=== PATIENT | female | born 1955 | race Caucasian/White ===

== ENCOUNTER 2018-09-28 09:45 | Outpatient (RCR) | payer MEDICARE, OTHER, SELFPAY ==
--- NOTE | 2018-08-22 17:00 | PT.OIE ---
Current Diagnoses Pain in unspecified ankle and joints of unspecified foot (08/22/18) Other intervertebral disc degeneration, lumbar region (08/22/18) Provider Visit Care Team Role Provider Type Angel Aranda DO Family Provider Non-Staff Specialty: Medical Address: [address] [place] [address], [address] Email: Christelle Palafox MD Attending Provider Non-Staff Primary Care Provider Specialty: Internal Medicine Address: [address] [place] [address], [id number] Email: [email or web address] Initial Evaluation PT-OP-A Visit Information Start: 08/22/18 16:59 Freq: Status: Active Protocol: Document 08/22/18 17:11 EA (Rec: 08/22/18 17:39 EA [id number]) Out-Patient Physical Therapy Visit Information Visit Information Visit Type Initial Evaluation Visit Start Time 15:15 Visit Stop Time 16:00 Total Visit Minutes 45 Visit Number 1 Number of NEWSCAST PRODUCER Visits 0 Evaluation Information Evaluation Date 08/22/18 Precautions Precautions Tape allergy, easy to bruise, Raynauds (blisters history when exposed to cold) Occasional vertigo PT-OP-B Current Condition Start: 08/22/18 16:59 Freq: Status: Active Protocol: Document 08/22/18 17:11 EA (Rec: 08/22/18 17:39 EA [id number]) Current Condition History of Current Condition Onset Date > 10 years chronic condition Current Complaints Both ankle and low back localized pain. History of Current Condition Pt reports present low back pain complaint has been chronic since 2007 and has had formal PT yearly with no complete recovery. She states currently on special treatment for th nerve at the sacral region which they believe both heels sharp and burning pain is due to nerve issue. Patient reports she been using foot orthotics in more than 2 years as it was prescribed by her podiatrists. She feels it helps to decrease pressure. 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 Currently on long standing steroid medication Treatment Goals Patient/Caregiver Goals Patient would like to reduce low back pain from 8/10 to at least 3/10 Would like to eliminate both heel burning sensation. 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 Unable Current Functional Impairments (Reported) Functional Limitations- ADL's Indep with limitation in all activities that requires bending, lifting, and long distance ambulation Functional Limitations- Mobility/Gait 300 ft Functional Limitations- Recreation/ Unable to perform recreation Hobbies activities that requires dynamic standing PT-OP-C Subjective Start: 08/22/18 16:59 Freq: Status: Active Protocol: Document 08/22/18 17:11 EA (Rec: 08/22/18 17:39 EA [id number]) OP-PT Subjective Patient Comments Patient Comments Pt reports she is very happy to be able to walk more than a block to get her mail. Patient Reported Progress Worse Patient Questionnaires Foot & Ankle Ability Measure- ADL and Sports FAAM-ADL Score 27 FAAM-ADL Impairment 60 to 79% Impaired (Score 16- 32) OP-PT Pain Assessment Pain Assessment Grid Paper Pain Assessment Grid Completed Yes Location Bilateral Lower Volar Foot Pain Location Details platar surface, heels Intensity 5 Scale Used Numeric (1 - 10) Description Burning Sharp Frequency Frequent Other Pain Aggravating Factors weight bearing Right Lower Back Intensity 7 Scale Used Numeric (1 - 10) Description Tender Tightness Frequency Intermittent Pain Aggravating Factors Activity Standing Walking Bending Lifting Home Pain Medication Use Pain Medications Used Yes Pain Behaviors Pain Behaviors Wincing PT-OP-D Balance Start: 08/22/18 16:59 Freq: Status: Active Protocol: Document 08/22/18 17:20 EA (Rec: 08/23/18 16:22 EA [id number]) Balance Tests Single Limb Standing Single Limb- Right unable Single Limb- Left < 3 seconds PT-OP-G Mobility & Gait Start: 08/22/18 16:59 Freq: Status: Active Protocol: Document 08/22/18 17:11 EA (Rec: 08/22/18 17:39 EA [id number]) OP Gait Assessment Gait Gait Assistance Required: Independent Able to Maintain Weight Bearing Status Yes During Gait Assistive Devices Assistive Device Straight Cane Gait Deviations General Gait Pattern Antalgic Factors Limiting Gait Function Factors Limiting Gait Function Decreased Activity Tolerance Decreased Strength Pain PT-OP-J Posture/Palpation/Skin Start: 08/22/18 16:59 Freq: Status: Active Protocol: Document 08/22/18 17:20 EA (Rec: 08/23/18 16:20 EA [id number]) Posture Evaluation Comments Posture Comments Left shoulder depressed with left hip slightly elevated. Increased lumbar lordosis Palpation Assessment Location One Palpation Location Paralumbars, SI joint, right hip ER, Bilat ITB Palpation Findings Soft Tissue Tightness Tenderness Trigger Point PT-OP-K Range of Motion Start: 08/22/18 16:59 Freq: Status: Active Protocol: Document 08/22/18 17:20 EA (Rec: 08/23/18 16:20 EA [id number]) Lumbar Spine Range of Motion Lumbar Spine Percentage Testing Position Standing Flexion 60 Extension 100 Rotation Left 75 Rotation Right 75 Lateral Flexion Left 75 Lateral Flexion Right 65 ROM Limitations Soft Tissue Tightness Pain Ankle and Foot Goniometric Range of Motion Ankle and Foot Measured in Degrees Right Active Ankle/Foot ROM WFL Yes Left Active Ankle/Foot ROM WFL Yes PT-OP-L Special Tests Start: 08/22/18 16:59 Freq: Status: Active Protocol: Document 08/22/18 17:20 EA (Rec: 08/23/18 16:20 EA [id number]) Special Tests Lumbar Spine Special Tests Slump Test Results - Prone Instability Test Test Results - Straight Leg Raise Test Results - Hip Special Tests Piriformis Test Results Right sensitive Knee Special Tests Neel's Test Test Results + bilateral PT-OP-M Strength Start: 08/22/18 16:59 Freq: Status: Active Protocol: Document 08/22/18 17:20 EA (Rec: 08/23/18 16:20 EA [id number]) Hip Strength Hip Manual Muscle Testing Right Flexion (L2) 4 Good Extension (S1) 4 Good Abduction 4 Good External Rotation 4 Good Internal Rotation 4- Good- Left Flexion (L2) 4 Good Extension (S1) 4 Good Abduction 4 Good External Rotation 4 Good Internal Rotation 4- Good- Reason Not Measured WFL Knee Strength Knee Manual Muscle Testing Right Reason Not Measured WFL Left Reason Not Measured WFL Ankle/Foot Strength Ankle and Foot Manual Muscle Testing Right Dorsiflexion (L4) 4+ Good+ Plantarflexion (S1) 5 Normal Left Dorsiflexion (L4) 4+ Good+ Plantarflexion (S1) 5 Normal PT-OP-T Assessment and Plan Start: 08/22/18 16:59 Freq: Status: Active Protocol: Document 08/22/18 17:20 EA (Rec: 08/23/18 16:20 EA [id number]) Physical Therapy Assessment Rehab Potential Rehabilitation Potential Fair Evaluation Complexity Number of Personal Factors/Comorbidities 3 or More Number of Body Systems Impaired 4 or More Clinical Presentation at Evaluation Unstable Impairments Impairments Activity Tolerance Balance Functional Mobility Gait Pain Posture ROM Soft Tissue Mobility Strength Goals Three Impairment Balance Penitentiary Goal (LTG) Patient will perform SLS to each leg more than 5 seconds to improve gait LTG Duration 4 wks Two Impairment FAAM score of 27/80 Forensic Manager Goal (LTG) Patient will have FAAM score of > 40/80 LTG Duration 6 wks One Impairment Impaired distance amb. Penitentiary Goal (LTG) Patient will amb. more than 2 blocks te get her mail without increase of low back and leg symptoms LTG Duration 6 wks Assessment Summary Assessment Pleasant 63 y/o F patient with a referring diagnosis of DDD to lumbar region and B ankle pain. Today patient presented with impaired gait, balance, decreased standing and walking tolerance due to moderate to severe pain to lumbar region and both heel/foot pain. Lumbar spine ROM reveals limited with flexion> SF and rotation. Palpation reveals tender over SI joint, bilateral ITB, and right hip gluteal region. Special tests reveals positive with ITB tightness, slight sensitive with piriformis syndrome, slight sensitive with SI joint, negative with Windlass effect to both plantar fascia and negative with SLR. Strength assessment reveals no significant weakness with ability of the patient to walk on both toes, however slight weakness to both hip ABD/ER/IR . Postural assessment reveals left shoulder depressed with left hip elev. Due to above mentioned issues, patient unable to function to her maximum potential as should be . Patient would benefit with skilled PT to enhance function . Physical Therapy Plan Frequency and Duration Frequency of Treatment 2x/Week Duration of Treatment 8wks Plan of Care Start Date 08/22/18 Plan of Care End Date 10/17/18 Therapeutic Interventions Therapeutic Interventions Balance Training Gait Training Home Exercise Program Joint Mobilizations Manual Therapy Neuromuscular Re-education Patient/Caregiver Education Self-Care/Home Management Soft Tissue Mobilization Taping Therapeutic Exercises Modalities Hot Packs Paraffin Bath Ultrasound Next Visit Focus/Plan Next Note Type Treatment Note Next Visit Plan Begin lumbar ROM, Flexibility to hip, lumbar region (hip ER, ITB), IFC to right lat HIP and use of heat.
--- NOTE | 2018-08-22 17:20 | PT.OPPOC ---
Current Diagnoses Pain in unspecified ankle and joints of unspecified foot (08/22/18) Other intervertebral disc degeneration, lumbar region (08/22/18) Provider Visit Care Team Role Provider Type Angel Aranda DO Family Provider Non-Staff Specialty: Medical Address: [address] [place] [address], [phone] Email: Christelle Palafox MD Attending Provider Non-Staff Primary Care Provider Specialty: Internal Medicine Address: [address] [place] [address], [phone] Email: [email or web address] Plan Of Care PT-OP-T Assessment and Plan Start: 08/22/18 16:59 Freq: Status: Active Protocol: Document 08/22/18 17:20 EA (Rec: 08/23/18 16:20 EA [id number]) Physical Therapy Assessment Rehab Potential Rehabilitation Potential Fair Evaluation Complexity Number of Personal Factors/Comorbidities 3 or More Number of Body Systems Impaired 4 or More Clinical Presentation at Evaluation Unstable Impairments Impairments Activity Tolerance Balance Functional Mobility Gait Pain Posture ROM Soft Tissue Mobility Strength Goals Three Impairment Balance Long-Term Goal (LTG) Patient will perform SLS to each leg more than 5 seconds to improve gait LTG Duration 4 wks Two Impairment FAAM score of 27/80 Long-Term Goal (LTG) Patient will have FAAM score of > 40/80 LTG Duration 6 wks One Impairment Impaired distance amb. Veneer Redrier Goal (LTG) Patient will amb. more than 2 blocks te get her mail without increase of low back and leg symptoms LTG Duration 6 wks Assessment Summary Assessment Pleasant 63 y/o F patient with a referring diagnosis of DDD to lumbar region and B ankle pain. Today patient presented with impaired gait, balance, decreased standing and walking tolerance due to moderate to severe pain to lumbar region and both heel/foot pain. Lumbar spine ROM reveals limited with flexion> SF and rotation. Palpation reveals tender over SI joint, bilateral ITB, and right hip gluteal region. Special tests reveals positive with ITB tightness, slight sensitive with piriformis syndrome, slight sensitive with SI joint, negative with Windlass effect to both plantar fascia and negative with SLR. Strength assessment reveals no significant weakness with ability of the patient to walk on both toes, however slight weakness to both hip ABD/ER/IR . Postural assessment reveals left shoulder depressed with left hip elev. Due to above mentioned issues, patient unable to function to her maximum potential as should be . Patient would benefit with skilled PT to enhance function . Physical Therapy Plan Frequency and Duration Frequency of Treatment 2x/Week Duration of Treatment 8wks Plan of Care Start Date 08/22/18 Plan of Care End Date 10/17/18 Therapeutic Interventions Therapeutic Interventions Balance Training Gait Training Home Exercise Program Joint Mobilizations Manual Therapy Neuromuscular Re-education Patient/Caregiver Education Self-Care/Home Management Soft Tissue Mobilization Taping Therapeutic Exercises Modalities Hot Packs Paraffin Bath Ultrasound Next Visit Focus/Plan Next Note Type Treatment Note Next Visit Plan Begin lumbar ROM, Flexibility to hip, lumbar region (hip ER, ITB), IFC to right lat HIP and use of heat. Plan of Care Dates Plan of Care Start Date 08/22/18 Plan of Care End Date 10/17/18 Please Sign and Return: I have reviewed this Plan of Care and certify that the skilled therapy services above are required to meet the patient?s needs. Physician Signature Date Printed Name and Credentials Clinical Instructor Signature Printed Name and Credentials
--- NOTE | 2018-08-24 12:01 | PT.OTN ---
Current Diagnoses Pain in unspecified ankle and joints of unspecified foot (08/24/18) Other intervertebral disc degeneration, lumbar region (08/24/18) Physical Therapy Treatment Note PT-OP-A Visit Information Start: 08/22/18 16:59 Freq: Status: Active Protocol: Document 08/24/18 11:50 SA (Rec: 08/24/18 12:01 SA [email or web address]) Out-Patient Physical Therapy Visit Information Visit Information Visit Type Treatment Note Visit Start Time 10:00 Visit Stop Time 10:30 Total Visit Minutes 30 Visit Number 2 Number of SLEEP SCIENTIST Visits 1 PT-OP-B Current Condition Start: 08/22/18 16:59 Freq: Status: Active Protocol: Document 08/22/18 17:11 EA (Rec: 08/22/18 17:39 EA [id number]) Current Condition History of Current Condition Onset Date > 10 years chronic condition Current Complaints Both ankle and low back localized pain. History of Current Condition Pt reports present low back pain complaint has been chonic since 2007 and has had formal PT yearly with no complete recovery. She states currently on special treament for th nerve at the sacral region which they believe both heels sharp and burning pain is due to nerve issue. Patient reports she been using foot orthotics in more than 2 years as it was precribed by her podiatrists. She feels it helps to decrease pressure. Prior Treatments and Tests Multiple treaments with PT since 2007 Block Placer treament for both feet Future Testing and Treatments Planned Currently on HRT therapy Currently on special lumbasacral nerve therapy. Currently on long standing steroid medication Treatment Goals Patient/Caregiver Goals Patient would like to reduce low back pain from 8/10 to at least 3/10 Would like to eliminate both heel burning sensation. 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 Unable Current Functional Impairments (Reported) Functional Limitations- ADL's Indep with limitation in all activities that requires bending, lifting, and long distance ambulation Functional Limitations- Mobility/Gait 300 ft Functional Limitations- Recreation/ Unable to perform recreation Hobbies activities that requires dynamic standing PT-OP-C Subjective Start: 08/22/18 16:59 Freq: Status: Active Protocol: Document 08/24/18 11:50 SA (Rec: 08/24/18 12:01 SA [id number]) OP-PT Subjective Patient Comments Patient Comments Pt reports feeling fired up with Low back and R ITB symptoms, thinks her medical appointments from earlier in the week aggrivated her Su. PT-OP-D Balance Start: 08/22/18 16:59 Freq: Status: Active Protocol: Document 08/22/18 17:20 EA (Rec: 08/23/18 16:22 EA [id number]) Balance Tests Single Limb Standing Single Limb- Right unable Single Limb- Left < 3 seconds PT-OP-G Mobility & Gait Start: 08/22/18 16:59 Freq: Status: Active Protocol: Document 08/22/18 17:11 EA (Rec: 08/22/18 17:39 EA [id number]) OP Gait Assessment Gait Gait Assistance Required: Independent Able to Maintain Weight Bearing Status Yes During Gait Assistive Devices Assistive Device Straight Cane Gait Deviations General Gait Pattern Antalgic Factors Limiting Gait Function Factors Limiting Gait Function Decreased Activity Tolerance Decreased Strength Pain PT-OP-J Posture/Palpation/Skin Start: 08/22/18 16:59 Freq: Status: Active Protocol: Document 08/22/18 17:20 EA (Rec: 08/23/18 16:20 EA [id number]) Posture Evaluation Comments Posture Comments Left shoulder depressed with left hip slightly elevated. Increased lumbar lordosis Palpation Assessment Location One Palpation Location Paralumbars, SI joint, right hip ER, Bilat ITB Palpation Findings Soft Tissue Tightness Tenderness Trigger Point PT-OP-K Range of Motion Start: 08/22/18 16:59 Freq: Status: Active Protocol: Document 08/22/18 17:20 EA (Rec: 08/23/18 16:20 EA [id number]) Lumbar Spine Range of Motion Lumbar Spine Percentage Testing Position Standing Flexion 60 Extension 100 Rotation Left 75 Rotation Right 75 Lateral Flexion Left 75 Lateral Flexion Right 65 ROM Limitations Soft Tissue Tightness Pain Ankle and Foot Goniometric Range of Motion Ankle and Foot Measured in Degrees Right Active Ankle/Foot ROM WFL Yes Left Active Ankle/Foot ROM WFL Yes PT-OP-L Special Tests Start: 08/22/18 16:59 Freq: Status: Active Protocol: Document 08/22/18 17:20 EA (Rec: 08/23/18 16:20 EA [id number]) Special Tests Lumbar Spine Special Tests Slump Test Results - Prone Instability Test Test Results - Straight Leg Raise Test Results - Hip Special Tests Piriformis Test Results Right sensitive Knee Special Tests Neel's Test Test Results + bilateral PT-OP-M Strength Start: 08/22/18 16:59 Freq: Status: Active Protocol: Document 08/22/18 17:20 EA (Rec: 08/23/18 16:20 EA [id number]) Hip Strength Hip Manual Muscle Testing Right Flexion (L2) 4 Good Extension (S1) 4 Good Abduction 4 Good External Rotation 4 Good Internal Rotation 4- Good- Left Flexion (L2) 4 Good Extension (S1) 4 Good Abduction 4 Good External Rotation 4 Good Internal Rotation 4- Good- Reason Not Measured WFL Knee Strength Knee Manual Muscle Testing Right Reason Not Measured WFL Left Reason Not Measured WFL Ankle/Foot Strength Ankle and Foot Manual Muscle Testing Right Dorsiflexion (L4) 4+ Good+ Plantarflexion (S1) 5 Normal Left Dorsiflexion (L4) 4+ Good+ Plantarflexion (S1) 5 Normal PT-OP-Q Treatments Start: 08/22/18 16:59 Freq: Status: Active Protocol: Document 08/24/18 11:50 SA (Rec: 08/24/18 12:01 SA [id number]) Therapeutic Exercises Supine Exercises PPT with TA activiation Reps/Minutes 10x 5 Comments Cues for technique. DKTC Side bilateral Reps/Minutes 10 x 8 ITB stretch Side right Reps/Minutes 30 x 2 HS stretch Side bilateral Reps/Minutes 30 x 2 Comments supine Manual Therapy Treatment Soft Tissue Mobilization Lumbar paraspinals Body Location Lumbar paraspinals Mobilization Type Myofascial Release Rolling Intensity/Depth Superficial Body Position Sidelying Comments Pt very tender on R lumbar paraspinals, poor tolerance to STM so d/arin R ITB STM Body Location R ITB Mobilization Type Oscillations Rolling Intensity/Depth Superficial Body Position Sidelying Comments Pt very point tender, application of Bio-freeze prior and tolerated better. PT-OP-T Assessment and Plan Start: 08/22/18 16:59 Freq: Status: Active Protocol: Document 08/24/18 11:50 SA (Rec: 08/24/18 12:01 SA [id number]) Physical Therapy Assessment Assessment Summary Assessment Initiated stretching and core exercise, pt with limited tolerance to exercise and STM d/t Su flare up. Responded well to Bio-freeze. Physical Therapy Plan Next Visit Focus/Plan Next Note Type Treatment Note Next Visit Plan Begin lumbar ROM, Flexibility to hip, lumbar region (hip ER, ITB), IFC to right lat HIP and use of heat.
--- NOTE | 2018-08-29 17:09 | PT.OTN ---
Current Diagnoses Pain in unspecified ankle and joints of unspecified foot (08/29/18) Other intervertebral disc degeneration, lumbar region (08/29/18) Physical Therapy Treatment Note PT-OP-A Visit Information Start: 08/22/18 16:59 Freq: Status: Active Protocol: Document 08/29/18 16:57 EA (Rec: 08/29/18 17:09 EA [id number]) Out-Patient Physical Therapy Visit Information Visit Information Visit Type Treatment Note Visit Start Time 09:45 Visit Stop Time 10:30 Total Visit Minutes 40 Visit Number 3 Number of [employer] SUPERINTENDENT Visits 1 PT-OP-B Current Condition Start: 08/22/18 16:59 Freq: Status: Active Protocol: Document 08/22/18 17:11 EA (Rec: 08/22/18 17:39 EA [id number]) Current Condition History of Current Condition Onset Date > 10 years chronic condition Current Complaints Both ankle and low back localized pain. History of Current Condition Pt reports present low back pain complaint has been chonic since 2007 and has had formal PT yearly with no complete recovery. She states currently on special treament for th nerve at the sacral region which they believe both heels sharp and burning pain is due to nerve issue. Patient reports she been using foot orthotics in more than 2 years as it was precribed by her podiatrists. She feels it helps to decrease pressure. 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 Currently on long standing steroid medication Treatment Goals Patient/Caregiver Goals Patient would like to reduce low back pain from 8/10 to at least 3/10 Would like to eliminate both heel burning sensation. 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 Unable Current Functional Impairments (Reported) Functional Limitations- ADL's Indep with limitation in all activities that requires bending, lifting, and long distance ambulation Functional Limitations- Mobility/Gait 300 ft Functional Limitations- Recreation/ Unable to perform recreation Hobbies activities that requires dynamic standing PT-OP-C Subjective Start: 08/22/18 16:59 Freq: Status: Active Protocol: Document 08/29/18 16:57 EA (Rec: 08/29/18 17:09 EA [id number]) OP-PT Subjective Patient Comments Patient Comments Pt reports last treament with biofreeze helps to ease down manual therapy. PT-OP-D Balance Start: 08/22/18 16:59 Freq: Status: Active Protocol: Document 08/22/18 17:20 EA (Rec: 08/23/18 16:22 EA [id number]) Balance Tests Single Limb Standing Single Limb- Right unable Single Limb- Left < 3 seconds PT-OP-G Mobility & Gait Start: 08/22/18 16:59 Freq: Status: Active Protocol: Document 08/22/18 17:11 EA (Rec: 08/22/18 17:39 EA [id number]) OP Gait Assessment Gait Gait Assistance Required: Independent Able to Maintain Weight Bearing Status Yes During Gait Assistive Devices Assistive Device Straight Cane Gait Deviations General Gait Pattern Antalgic Factors Limiting Gait Function Factors Limiting Gait Function Decreased Activity Tolerance Decreased Strength Pain PT-OP-J Posture/Palpation/Skin Start: 08/22/18 16:59 Freq: Status: Active Protocol: Document 08/22/18 17:20 EA (Rec: 08/23/18 16:20 EA [id number]) Posture Evaluation Comments Posture Comments Left shoulder depressed with left hip slightly elevated. Increased lumbar lordosis Palpation Assessment Location One Palpation Location Paralumbars, SI joint, right hip ER, Bilat ITB Palpation Findings Soft Tissue Tightness Tenderness Trigger Point PT-OP-K Range of Motion Start: 08/22/18 16:59 Freq: Status: Active Protocol: Document 08/22/18 17:20 EA (Rec: 08/23/18 16:20 EA [id number]) Lumbar Spine Range of Motion Lumbar Spine Percentage Testing Position Standing Flexion 60 Extension 100 Rotation Left 75 Rotation Right 75 Lateral Flexion Left 75 Lateral Flexion Right 65 ROM Limitations Soft Tissue Tightness Pain Ankle and Foot Goniometric Range of Motion Ankle and Foot Measured in Degrees Right Active Ankle/Foot ROM WFL Yes Left Active Ankle/Foot ROM WFL Yes PT-OP-L Special Tests Start: 08/22/18 16:59 Freq: Status: Active Protocol: Document 08/22/18 17:20 EA (Rec: 08/23/18 16:20 EA [id number]) Special Tests Lumbar Spine Special Tests Slump Test Results - Prone Instability Test Test Results - Straight Leg Raise Test Results - Hip Special Tests Piriformis Test Results Right sensitive Knee Special Tests Neel's Test Test Results + bilateral PT-OP-M Strength Start: 08/22/18 16:59 Freq: Status: Active Protocol: Document 08/22/18 17:20 EA (Rec: 08/23/18 16:20 EA [id number]) Hip Strength Hip Manual Muscle Testing Right Flexion (L2) 4 Good Extension (S1) 4 Good Abduction 4 Good External Rotation 4 Good Internal Rotation 4- Good- Left Flexion (L2) 4 Good Extension (S1) 4 Good Abduction 4 Good External Rotation 4 Good Internal Rotation 4- Good- Reason Not Measured WFL Knee Strength Knee Manual Muscle Testing Right Reason Not Measured WFL Left Reason Not Measured WFL Ankle/Foot Strength Ankle and Foot Manual Muscle Testing Right Dorsiflexion (L4) 4+ Good+ Plantarflexion (S1) 5 Normal Left Dorsiflexion (L4) 4+ Good+ Plantarflexion (S1) 5 Normal PT-OP-Q Treatments Start: 08/22/18 16:59 Freq: Status: Active Protocol: Document 08/29/18 16:57 EA (Rec: 08/29/18 17:09 EA [id number]) Cardio Equipment Recumbent Stepper (Sci-Fit) Duration (Minutes) 3 Seat Position 9 Other unable to finish 5 mins due to increased of low back pain Therapeutic Exercises Supine Exercises PPT with TA activiation Reps/Minutes 10x 5 Comments Cues for technique. DKTC Side bilateral Reps/Minutes 10 x 8 ITB stretch Side right Reps/Minutes 30 x 2 HS stretch Side bilateral Reps/Minutes 30 x 2 Comments supine Sidelying Exercises 3 Sidelying Exercise Name Hip ABD Reps/Minutes x 5 reps x 2 sets 1 Sidelying Exercise Name clamshell Side right Reps/Minutes x 10 reps Manual Therapy Treatment Soft Tissue Mobilization Lumbar paraspinals Body Location Lumbar paraspinals Mobilization Type Myofascial Release Intensity/Depth Superficial Body Position Sidelying R ITB STM Body Location R ITB Mobilization Type Myofascial Release Intensity/Depth Superficial Body Position Sidelying Comments Pt very point tender, application of Bio-freeze prior and tolerated better. Self-Care/Home Management Treatment Education Caregiver Education Discussed lumbar abnormal posture in relevance to current both feet burning sensation. PT-OP-T Assessment and Plan Start: 08/22/18 16:59 Freq: Status: Active Protocol: Document 08/29/18 16:57 EA (Rec: 08/29/18 17:09 EA [id number]) Physical Therapy Assessment Assessment Summary Assessment Pt tolerated manual PT with the application of biofreeze prior. Other therex poorly tolerated due to increased of low back pain. Physical Therapy Plan Next Visit Focus/Plan Next Note Type Treatment Note Next Visit Plan Begin lumbar ROM, Flexibility to hip, lumbar region (hip ER, ITB), IFC to right lat HIP.
--- NOTE | 2018-09-05 13:10 | PT.OTN ---
Current Diagnoses Pain in unspecified ankle and joints of unspecified foot (09/05/18) Other intervertebral disc degeneration, lumbar region (09/05/18) Physical Therapy Treatment Note PT-OP-A Visit Information Start: 08/22/18 16:59 Freq: Status: Active Protocol: Document 09/05/18 13:02 EA (Rec: 09/05/18 13:06 EA [id number]) Out-Patient Physical Therapy Visit Information Visit Information Visit Type Treatment Note Visit Start Time 09:45 Visit Stop Time 10:30 Total Visit Minutes 40 Visit Number 4 Number of PARKING [employer]ICER Visits 1 PT-OP-B Current Condition Start: 08/22/18 16:59 Freq: Status: Active Protocol: Document 08/22/18 17:11 EA (Rec: 08/22/18 17:39 EA [id number]) Current Condition History of Current Condition Onset Date > 10 years chronic condition Current Complaints Both ankle and low back localized pain. History of Current Condition Pt reports present low back pain complaint has been chonic since 2007 and has had formal PT yearly with no complete recovery. She states currently on special treament for th nerve at the sacral region which they believe both heels sharp and burning pain is due to nerve issue. Patient reports she been using foot orthotics in more than 2 years as it was precribed by her podiatrists. She feels it helps to decrease pressure. Prior Treatments and Tests Multiple treaments with PT since 2007 [employer] treament for both feet Future Testing and Treatments Planned Currently on HRT therapy Currently on special lumbasacral nerve therapy. Currently on long standing steroid medication Treatment Goals Patient/Caregiver Goals Patient would like to reduce low back pain from 8/10 to at least 3/10 Would like to eliminate both heel burning sensation. 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 Unable Current Functional Impairments (Reported) Functional Limitations- ADL's Indep with limitation in all activities that requires bending, lifting, and long distance ambulation Functional Limitations- Mobility/Gait 300 ft Functional Limitations- Recreation/ Unable to perform recreation Hobbies activities that requires dynamic standing PT-OP-C Subjective Start: 08/22/18 16:59 Freq: Status: Active Protocol: Document 09/05/18 13:02 EA (Rec: 09/05/18 13:06 EA [id number]) OP-PT Subjective Patient Comments Patient Comments Pt reports brought imaging results on her low back; states the she wants learn more about it. Pt mentioned no morning stiffness on both feet . PT-OP-D Balance Start: 08/22/18 16:59 Freq: Status: Active Protocol: Document 08/22/18 17:20 EA (Rec: 08/23/18 16:22 EA [id number]) Balance Tests Single Limb Standing Single Limb- Right unable Single Limb- Left < 3 seconds PT-OP-G Mobility & Gait Start: 08/22/18 16:59 Freq: Status: Active Protocol: Document 08/22/18 17:11 EA (Rec: 08/22/18 17:39 EA [id number]) OP Gait Assessment Gait Gait Assistance Required: Independent Able to Maintain Weight Bearing Status Yes During Gait Assistive Devices Assistive Device Straight Cane Gait Deviations General Gait Pattern Antalgic Factors Limiting Gait Function Factors Limiting Gait Function Decreased Activity Tolerance Decreased Strength Pain PT-OP-J Posture/Palpation/Skin Start: 08/22/18 16:59 Freq: Status: Active Protocol: Document 08/22/18 17:20 EA (Rec: 08/23/18 16:20 EA [id number]) Posture Evaluation Comments Posture Comments Left shoulder depressed with left hip slightly elevated. Increased lumbar lordosis Palpation Assessment Location One Palpation Location Paralumbars, SI joint, right hip ER, Bilat ITB Palpation Findings Soft Tissue Tightness Tenderness Trigger Point PT-OP-K Range of Motion Start: 08/22/18 16:59 Freq: Status: Active Protocol: Document 08/22/18 17:20 EA (Rec: 08/23/18 16:20 EA [id number]) Lumbar Spine Range of Motion Lumbar Spine Percentage Testing Position Standing Flexion 60 Extension 100 Rotation Left 75 Rotation Right 75 Lateral Flexion Left 75 Lateral Flexion Right 65 ROM Limitations Soft Tissue Tightness Pain Ankle and Foot Goniometric Range of Motion Ankle and Foot Measured in Degrees Right Active Ankle/Foot ROM WFL Yes Left Active Ankle/Foot ROM WFL Yes PT-OP-L Special Tests Start: 08/22/18 16:59 Freq: Status: Active Protocol: Document 08/22/18 17:20 EA (Rec: 08/23/18 16:20 EA [id number]) Special Tests Lumbar Spine Special Tests Slump Test Results - Prone Instability Test Test Results - Straight Leg Raise Test Results - Hip Special Tests Piriformis Test Results Right sensitive Knee Special Tests Neel's Test Test Results + bilateral PT-OP-M Strength Start: 08/22/18 16:59 Freq: Status: Active Protocol: Document 08/22/18 17:20 EA (Rec: 08/23/18 16:20 EA [id number]) Hip Strength Hip Manual Muscle Testing Right Flexion (L2) 4 Good Extension (S1) 4 Good Abduction 4 Good External Rotation 4 Good Internal Rotation 4- Good- Left Flexion (L2) 4 Good Extension (S1) 4 Good Abduction 4 Good External Rotation 4 Good Internal Rotation 4- Good- Reason Not Measured WFL Knee Strength Knee Manual Muscle Testing Right Reason Not Measured WFL Left Reason Not Measured WFL Ankle/Foot Strength Ankle and Foot Manual Muscle Testing Right Dorsiflexion (L4) 4+ Good+ Plantarflexion (S1) 5 Normal Left Dorsiflexion (L4) 4+ Good+ Plantarflexion (S1) 5 Normal PT-OP-Q Treatments Start: 08/22/18 16:59 Freq: Status: Active Protocol: Document 09/05/18 13:02 EA (Rec: 09/05/18 13:06 EA [id number]) Cardio Equipment Recumbent Stepper (Sci-Fit) Duration (Minutes) 7 Seat Position 9 Therapeutic Exercises Supine Exercises PPT with TA activiation Reps/Minutes 10x 5 Comments Cues for technique. DKTC Side bilateral Reps/Minutes 10 x 8 ITB stretch Side right Reps/Minutes 30 x 2 HS stretch Side bilateral Reps/Minutes 30 x 2 Comments supine Sidelying Exercises 3 Sidelying Exercise Name Hip ABD Reps/Minutes x 5 reps x 2 sets 1 Sidelying Exercise Name clamshell Side right Reps/Minutes x 10 reps Manual Therapy Treatment Soft Tissue Mobilization R ITB STM Body Location B ITB, hip e-rotators Mobilization Type Myofascial Release Intensity/Depth Superficial Body Position Sidelying Comments Pt very point tender, application of Bio-freeze prior and tolerated better. PT-OP-T Assessment and Plan Start: 08/22/18 16:59 Freq: Status: Active Protocol: Document 09/05/18 13:02 EA (Rec: 09/05/18 13:06 ERUM [id number]) Physical Therapy Assessment Assessment Summary Assessment Pt educated with back condition. She tolerated treatment with less discomfort this time. Cont with current plan. Physical Therapy Plan Next Visit Focus/Plan Next Note Type Treatment Note Next Visit Plan Begin as tolerated sitted/standing lumbar ROM, flexibility to hip, lumbar region (hip ER, ITB).
--- NOTE | 2018-09-07 11:31 | PT.OTN ---
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 History of Current Condition Pt reports present low back pain complaint has been chonic since 2007 and has had formal PT yearly with no complete recovery. She states currently on special treament for th nerve at the sacral region which they believe both heels sharp and burning pain is due to nerve issue. Patient reports she been using foot orthotics in more than 2 years as it was precribed by her podiatrists. She feels it helps to decrease pressure. Prior Treatments and Tests Multiple treaments with PT since 2007 [employer] treament for both feet Future Testing and Treatments Planned Currently on HRT therapy Currently on special lumbasacral nerve therapy. Currently on long standing steroid medication Treatment Goals Patient/Caregiver Goals Patient would like to reduce low back pain from 8/10 to at least 3/10 Would like to eliminate both heel burning sensation. 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 Unable Current Functional Impairments (Reported) Functional Limitations- ADL's Indep with limitation in all activities that requires bending, lifting, and long distance ambulation Functional Limitations- Mobility/Gait 300 ft Functional Limitations- Recreation/ Unable to perform recreation Hobbies activities that requires dynamic standing PT-OP-C Subjective Start: 08/22/18 16:59 Freq: Status: Active Protocol: Document 09/07/18 11:21 SA (Rec: 09/07/18 11:31 SA [id number]) OP-PT Subjective Patient Comments Patient Comments Pt reports feeling pretty good today, was sore last night but soaked in hot tub this AM and low back feeling pretty good now. PT-OP-D Balance Start: 08/22/18 16:59 Freq: Status: Active Protocol: Document 08/22/18 17:20 EA (Rec: 08/23/18 16:22 EA [id number]) Balance Tests Single Limb Standing Single Limb- Right unable Single Limb- Left < 3 seconds PT-OP-G Mobility & Gait Start: 08/22/18 16:59 Freq: Status: Active Protocol: Document 08/22/18 17:11 EA (Rec: 08/22/18 17:39 EA [id number]) OP Gait Assessment Gait Gait Assistance Required: Independent Able to Maintain Weight Bearing Status Yes During Gait Assistive Devices Assistive Device Straight Cane Gait Deviations General Gait Pattern Antalgic Factors Limiting Gait Function Factors Limiting Gait Function Decreased Activity Tolerance Decreased Strength Pain PT-OP-J Posture/Palpation/Skin Start: 08/22/18 16:59 Freq: Status: Active Protocol: Document 08/22/18 17:20 EA (Rec: 08/23/18 16:20 EA [id number]) Posture Evaluation Comments Posture Comments Left shoulder depressed with left hip slightly elevated. Increased lumbar lordosis Palpation Assessment Location One Palpation Location Paralumbars, SI joint, right hip ER, Bilat ITB Palpation Findings Soft Tissue Tightness Tenderness Trigger Point PT-OP-K Range of Motion Start: 08/22/18 16:59 Freq: Status: Active Protocol: Document 08/22/18 17:20 EA (Rec: 08/23/18 16:20 EA [id number]) Lumbar Spine Range of Motion Lumbar Spine Percentage Testing Position Standing Flexion 60 Extension 100 Rotation Left 75 Rotation Right 75 Lateral Flexion Left 75 Lateral Flexion Right 65 ROM Limitations Soft Tissue Tightness Pain Ankle and Foot Goniometric Range of Motion Ankle and Foot Measured in Degrees Right Active Ankle/Foot ROM WFL Yes Left Active Ankle/Foot ROM WFL Yes PT-OP-L Special Tests Start: 08/22/18 16:59 Freq: Status: Active Protocol: Document 08/22/18 17:20 EA (Rec: 08/23/18 16:20 EA [id number]) Special Tests Lumbar Spine Special Tests Slump Test Results - Prone Instability Test Test Results - Straight Leg Raise Test Results - Hip Special Tests Piriformis Test Results Right sensitive Knee Special Tests Neel's Test Test Results + bilateral PT-OP-M Strength Start: 08/22/18 16:59 Freq: Status: Active Protocol: Document 08/22/18 17:20 EA (Rec: 08/23/18 16:20 EA [id number]) Hip Strength Hip Manual Muscle Testing Right Flexion (L2) 4 Good Extension (S1) 4 Good Abduction 4 Good External Rotation 4 Good Internal Rotation 4- Good- Left Flexion (L2) 4 Good Extension (S1) 4 Good Abduction 4 Good External Rotation 4 Good Internal Rotation 4- Good- Reason Not Measured WFL Knee Strength Knee Manual Muscle Testing Right Reason Not Measured WFL Left Reason Not Measured WFL Ankle/Foot Strength Ankle and Foot Manual Muscle Testing Right Dorsiflexion (L4) 4+ Good+ Plantarflexion (S1) 5 Normal Left Dorsiflexion (L4) 4+ Good+ Plantarflexion (S1) 5 Normal PT-OP-Q Treatments Start: 08/22/18 16:59 Freq: Status: Active Protocol: Document 09/07/18 11:21 SA (Rec: 09/07/18 11:31 SA [email or web address]) Cardio Equipment Recumbent Stepper (Sci-Fit) Duration (Minutes) 8 Resistance 1 Seat Position 9 Therapeutic Exercises Supine Exercises Trunk rotation with PT ball Side bilateral Equipment Used Red PT ball Reps/Minutes 10x each side Comments Cues for core engagement PPT with TA activiation Supine Exercise Name proressed to B marching Reps/Minutes 10x 5 Comments Cues for technique. DKTC Side bilateral Reps/Minutes 10 x 8 ITB stretch Side right Reps/Minutes 30 x 2 Sidelying Exercises 3 Sidelying Exercise Name Hip ABD Reps/Minutes x 5 reps x 2 sets 1 Sidelying Exercise Name clamshell Side right Reps/Minutes x 10 reps Manual Therapy Treatment Soft Tissue Mobilization Lumbar paraspinals Body Location Lumbar paraspinals Mobilization Type Myofascial Release Intensity/Depth Superficial Body Position Sidelying R ITB STM Body Location B ITB, hip e-rotators Mobilization Type Myofascial Release Intensity/Depth Superficial Body Position Sidelying Comments Application of Bio-freeze prior to STM PT-OP-T Assessment and Plan Start: 08/22/18 16:59 Freq: Status: Active Protocol: Document 09/07/18 11:21 SA (Rec: 09/07/18 11:31 SA [email or web address]) Physical Therapy Assessment Assessment Summary Assessment Progressed lumbar stab program with good tolerance, pt doing HEP, decreasing low back sx and B foot sx much improved. Physical Therapy Plan Next Visit Focus/Plan Next Note Type Treatment Note Next Visit Plan Progress lumbar stab and core program as tolerated.
--- NOTE | 2018-09-12 12:08 | PT.OTN ---
Current Diagnoses Pain in unspecified ankle and joints of unspecified foot (09/12/18) Other intervertebral disc degeneration, lumbar region (09/12/18) Physical Therapy Treatment Note PT-OP-A Visit Information Start: 08/22/18 16:59 Freq: Status: Active Protocol: Document 09/12/18 10:34 EA (Rec: 09/12/18 10:41 EA [id number]) Out-Patient Physical Therapy Visit Information Visit Information Visit Type Treatment Note Visit Start Time 09:45 Visit Stop Time 10:30 Total Visit Minutes 45 Visit Number 6 Number of AUDIOLOGY ASSISTANT Visits 1 PT-OP-B Current Condition Start: 08/22/18 16:59 Freq: Status: Active Protocol: Document 08/22/18 17:11 EA (Rec: 08/22/18 17:39 EA [id number]) Current Condition History of Current Condition Onset Date > 10 years chronic condition Current Complaints Both ankle and low back localized pain. History of Current Condition Pt reports present low back pain complaint has been chonic since 2007 and has had formal PT yearly with no complete recovery. She states currently on special treament for th nerve at the sacral region which they believe both heels sharp and burning pain is due to nerve issue. Patient reports she been using foot orthotics in more than 2 years as it was precribed by her podiatrists. She feels it helps to decrease pressure. Prior Treatments and Tests Multiple treaments with PT since 2007 [employer] treament for both feet Future Testing and Treatments Planned Currently on HRT therapy Currently on special lumbasacral nerve therapy. Currently on long standing steroid medication Treatment Goals Patient/Caregiver Goals Patient would like to reduce low back pain from 8/10 to at least 3/10 Would like to eliminate both heel burning sensation. 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 Unable Current Functional Impairments (Reported) Functional Limitations- ADL's Indep with limitation in all activities that requires bending, lifting, and long distance ambulation Functional Limitations- Mobility/Gait 300 ft Functional Limitations- Recreation/ Unable to perform recreation Hobbies activities that requires dynamic standing PT-OP-C Subjective Start: 08/22/18 16:59 Freq: Status: Active Protocol: Document 09/12/18 10:34 EA (Rec: 09/12/18 10:41 EA [id number]) OP-PT Subjective Patient Comments Patient Comments Pt reports she starting to get back to walking again; states low back and hips is feeling a little better. Pt also reports that she maybe possibly diagnosed with MG. Patient Reported Progress Improving PT-OP-D Balance Start: 08/22/18 16:59 Freq: Status: Active Protocol: Document 08/22/18 17:20 EA (Rec: 08/23/18 16:22 EA [id number]) Balance Tests Single Limb Standing Single Limb- Right unable Single Limb- Left < 3 seconds PT-OP-G Mobility & Gait Start: 08/22/18 16:59 Freq: Status: Active Protocol: Document 08/22/18 17:11 EA (Rec: 08/22/18 17:39 EA [id number]) OP Gait Assessment Gait Gait Assistance Required: Independent Able to Maintain Weight Bearing Status Yes During Gait Assistive Devices Assistive Device Straight Cane Gait Deviations General Gait Pattern Antalgic Factors Limiting Gait Function Factors Limiting Gait Function Decreased Activity Tolerance Decreased Strength Pain PT-OP-J Posture/Palpation/Skin Start: 08/22/18 16:59 Freq: Status: Active Protocol: Document 08/22/18 17:20 EA (Rec: 08/23/18 16:20 EA [id number]) Posture Evaluation Comments Posture Comments Left shoulder depressed with left hip slightly elevated. Increased lumbar lordosis Palpation Assessment Location One Palpation Location Paralumbars, SI joint, right hip ER, Bilat ITB Palpation Findings Soft Tissue Tightness Tenderness Trigger Point PT-OP-K Range of Motion Start: 08/22/18 16:59 Freq: Status: Active Protocol: Document 08/22/18 17:20 EA (Rec: 08/23/18 16:20 EA [id number]) Lumbar Spine Range of Motion Lumbar Spine Percentage Testing Position Standing Flexion 60 Extension 100 Rotation Left 75 Rotation Right 75 Lateral Flexion Left 75 Lateral Flexion Right 65 ROM Limitations Soft Tissue Tightness Pain Ankle and Foot Goniometric Range of Motion Ankle and Foot Measured in Degrees Right Active Ankle/Foot ROM WFL Yes Left Active Ankle/Foot ROM WFL Yes PT-OP-L Special Tests Start: 08/22/18 16:59 Freq: Status: Active Protocol: Document 08/22/18 17:20 EA (Rec: 08/23/18 16:20 EA [id number]) Special Tests Lumbar Spine Special Tests Slump Test Results - Prone Instability Test Test Results - Straight Leg Raise Test Results - Hip Special Tests Piriformis Test Results Right sensitive Knee Special Tests Neel's Test Test Results + bilateral PT-OP-M Strength Start: 08/22/18 16:59 Freq: Status: Active Protocol: Document 08/22/18 17:20 EA (Rec: 08/23/18 16:20 EA [id number]) Hip Strength Hip Manual Muscle Testing Right Flexion (L2) 4 Good Extension (S1) 4 Good Abduction 4 Good External Rotation 4 Good Internal Rotation 4- Good- Left Flexion (L2) 4 Good Extension (S1) 4 Good Abduction 4 Good External Rotation 4 Good Internal Rotation 4- Good- Reason Not Measured WFL Knee Strength Knee Manual Muscle Testing Right Reason Not Measured WFL Left Reason Not Measured WFL Ankle/Foot Strength Ankle and Foot Manual Muscle Testing Right Dorsiflexion (L4) 4+ Good+ Plantarflexion (S1) 5 Normal Left Dorsiflexion (L4) 4+ Good+ Plantarflexion (S1) 5 Normal PT-OP-Q Treatments Start: 08/22/18 16:59 Freq: Status: Active Protocol: Document 09/12/18 10:34 EA (Rec: 09/12/18 10:41 EA [id number]) Cardio Equipment Recumbent Stepper (Sci-Fit) Duration (Minutes) 7 Seat Position 9 Therapeutic Exercises Supine Exercises Trunk rotation with PT ball Side bilateral Equipment Used Red PT ball Reps/Minutes 10x each side Comments Cues for core engagement PPT with TA activiation Supine Exercise Name proressed to B marching Reps/Minutes 10x 5 Comments Cues for technique. DKTC Side bilateral Reps/Minutes 10 x 8 ITB stretch Side right Reps/Minutes 30 x 2 HS stretch Side bilateral Reps/Minutes 30 x 2 Comments supine Sidelying Exercises 3 Sidelying Exercise Name Hip ABD Reps/Minutes x 5 reps x 2 sets 1 Sidelying Exercise Name clamshell Side right Reps/Minutes x 10 reps Manual Therapy Treatment Soft Tissue Mobilization R ITB STM Body Location B ITB, hip e-rotators Mobilization Type Myofascial Release Intensity/Depth Superficial Body Position Sidelying Comments Application of Bio-freeze prior to STM PT-OP-T Assessment and Plan Start: 08/22/18 16:59 Freq: Status: Active Protocol: Document 09/12/18 10:34 EA (Rec: 09/12/18 10:41 EA [id number]) Physical Therapy Assessment Assessment Summary Assessment Pt tolerated treatment well. Continue with current plan. Physical Therapy Plan Next Visit Focus/Plan Next Note Type Treatment Note Next Visit Plan Progress lumbar stab and core program as tolerated.
--- NOTE | 2018-09-14 11:40 | PT.OTN ---
Current Diagnoses Pain in unspecified ankle and joints of unspecified foot (09/14/18) Other intervertebral disc degeneration, lumbar region (09/14/18) Physical Therapy Treatment Note PT-OP-A Visit Information Start: 08/22/18 16:59 Freq: Status: Active Protocol: Document 09/14/18 11:35 SA (Rec: 09/14/18 11:40 SA [id number]) Out-Patient Physical Therapy Visit Information Visit Information Visit Type Treatment Note Visit Start Time 09:45 Visit Stop Time 10:30 Total Visit Minutes 45 Visit Number 7 Number of AUTOMATIC CENTRIF[employer]AL [employer]ATION OPERATOR Visits 2 PT-OP-B Current Condition Start: 08/22/18 16:59 Freq: Status: Active Protocol: Document 08/22/18 17:11 EA (Rec: 08/22/18 17:39 EA [id number]) Current Condition History of Current Condition Onset Date > 10 years chronic condition Current Complaints Both ankle and low back localized pain. History of Current Condition Pt reports present low back pain complaint has been chonic since 2007 and has had formal PT yearly with no complete recovery. She states currently on special treament for th nerve at the sacral region which they believe both heels sharp and burning pain is due to nerve issue. Patient reports she been using foot orthotics in more than 2 years as it was precribed by her podiatrists. She feels it helps to decrease pressure. Prior Treatments and Tests Multiple treaments with PT since 2007 [employer] treament for both feet Future Testing and Treatments Planned Currently on HRT therapy Currently on special lumbasacral nerve therapy. Currently on long standing steroid medication Treatment Goals Patient/Caregiver Goals Patient would like to reduce low back pain from 8/10 to at least 3/10 Would like to eliminate both heel burning sensation. 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 Unable Current Functional Impairments (Reported) Functional Limitations- ADL's Indep with limitation in all activities that requires bending, lifting, and long distance ambulation Functional Limitations- Mobility/Gait 300 ft Functional Limitations- Recreation/ Unable to perform recreation Hobbies activities that requires dynamic standing PT-OP-C Subjective Start: 08/22/18 16:59 Freq: Status: Active Protocol: Document 09/14/18 11:35 SA (Rec: 09/14/18 11:40 SA [id number]) OP-PT Subjective Patient Comments Patient Comments Pt reports feeling pretty good for her, did some gardening and tolerated well. PT-OP-D Balance Start: 08/22/18 16:59 Freq: Status: Active Protocol: Document 08/22/18 17:20 EA (Rec: 08/23/18 16:22 EA [id number]) Balance Tests Single Limb Standing Single Limb- Right unable Single Limb- Left < 3 seconds PT-OP-G Mobility & Gait Start: 08/22/18 16:59 Freq: Status: Active Protocol: Document 08/22/18 17:11 EA (Rec: 08/22/18 17:39 EA [id number]) OP Gait Assessment Gait Gait Assistance Required: Independent Able to Maintain Weight Bearing Status Yes During Gait Assistive Devices Assistive Device Straight Cane Gait Deviations General Gait Pattern Antalgic Factors Limiting Gait Function Factors Limiting Gait Function Decreased Activity Tolerance Decreased Strength Pain PT-OP-J Posture/Palpation/Skin Start: 08/22/18 16:59 Freq: Status: Active Protocol: Document 08/22/18 17:20 EA (Rec: 08/23/18 16:20 EA [id number]) Posture Evaluation Comments Posture Comments Left shoulder depressed with left hip slightly elevated. Increased lumbar lordosis Palpation Assessment Location One Palpation Location Paralumbars, SI joint, right hip ER, Bilat ITB Palpation Findings Soft Tissue Tightness Tenderness Trigger Point PT-OP-K Range of Motion Start: 08/22/18 16:59 Freq: Status: Active Protocol: Document 08/22/18 17:20 EA (Rec: 08/23/18 16:20 EA [id number]) Lumbar Spine Range of Motion Lumbar Spine Percentage Testing Position Standing Flexion 60 Extension 100 Rotation Left 75 Rotation Right 75 Lateral Flexion Left 75 Lateral Flexion Right 65 ROM Limitations Soft Tissue Tightness Pain Ankle and Foot Goniometric Range of Motion Ankle and Foot Measured in Degrees Right Active Ankle/Foot ROM WFL Yes Left Active Ankle/Foot ROM WFL Yes PT-OP-L Special Tests Start: 08/22/18 16:59 Freq: Status: Active Protocol: Document 08/22/18 17:20 EA (Rec: 08/23/18 16:20 EA [id number]) Special Tests Lumbar Spine Special Tests Slump Test Results - Prone Instability Test Test Results - Straight Leg Raise Test Results - Hip Special Tests Piriformis Test Results Right sensitive Knee Special Tests Neel's Test Test Results + bilateral PT-OP-M Strength Start: 08/22/18 16:59 Freq: Status: Active Protocol: Document 08/22/18 17:20 EA (Rec: 08/23/18 16:20 EA [id number]) Hip Strength Hip Manual Muscle Testing Right Flexion (L2) 4 Good Extension (S1) 4 Good Abduction 4 Good External Rotation 4 Good Internal Rotation 4- Good- Left Flexion (L2) 4 Good Extension (S1) 4 Good Abduction 4 Good External Rotation 4 Good Internal Rotation 4- Good- Reason Not Measured WFL Knee Strength Knee Manual Muscle Testing Right Reason Not Measured WFL Left Reason Not Measured WFL Ankle/Foot Strength Ankle and Foot Manual Muscle Testing Right Dorsiflexion (L4) 4+ Good+ Plantarflexion (S1) 5 Normal Left Dorsiflexion (L4) 4+ Good+ Plantarflexion (S1) 5 Normal PT-OP-Q Treatments Start: 08/22/18 16:59 Freq: Status: Active Protocol: Document 09/14/18 11:35 SA (Rec: 09/14/18 11:40 SA [email or web address]) Cardio Equipment Recumbent Stepper (Sci-Fit) Duration (Minutes) 8 Resistance 1.2 Seat Position 9 Therapeutic Exercises Supine Exercises Trunk rotation with PT ball Side bilateral Equipment Used Red PT ball Reps/Minutes 10x each side Comments Cues for core engagement PPT with TA activiation Supine Exercise Name proressed to B marching Reps/Minutes 10x 5 Comments Cues for technique. DKTC Side bilateral Reps/Minutes 10 x 8 ITB stretch Side right Reps/Minutes 30 x 2 HS stretch Side bilateral Reps/Minutes 30 x 2 Comments supine Sidelying Exercises 3 Sidelying Exercise Name Hip ABD Reps/Minutes x 5 reps x 2 sets 1 Sidelying Exercise Name clamshell Side right Reps/Minutes x 10 reps Manual Therapy Treatment Soft Tissue Mobilization R ITB STM Body Location B ITB, hip e-rotators Mobilization Type Myofascial Release Intensity/Depth Superficial Body Position Sidelying Comments Application of Bio-freeze prior to STM PT-OP-T Assessment and Plan Start: 08/22/18 16:59 Freq: Status: Active Protocol: Document 09/14/18 11:35 SA (Rec: 09/14/18 11:40 SA [id number]) Physical Therapy Assessment Assessment Summary Assessment Pt progressing well, gradual increase in activity outside of clinic. OT does well with self pacing. Physical Therapy Plan Next Visit Focus/Plan Next Note Type Treatment Note Next Visit Plan Progress lumbar stab and core program as tolerated.
--- NOTE | 2018-09-19 12:09 | PT.OTN ---
Current Diagnoses Pain in unspecified ankle and joints of unspecified foot (09/19/18) Other intervertebral disc degeneration, lumbar region (09/19/18) Physical Therapy Treatment Note PT-OP-A Visit Information Start: 08/22/18 16:59 Freq: Status: Active Protocol: Document 09/19/18 09:51 EA (Rec: 09/19/18 09:55 EA [id number]) Out-Patient Physical Therapy Visit Information Visit Information Visit Type Treatment Note Visit Start Time 09:45 Visit Stop Time 10:30 Total Visit Minutes 45 Visit Number 8 Number of PORCELAIN FINISHER Visits 2 PT-OP-B Current Condition Start: 08/22/18 16:59 Freq: Status: Active Protocol: Document 08/22/18 17:11 EA (Rec: 08/22/18 17:39 EA [id number]) Current Condition History of Current Condition Onset Date > 10 years chronic condition Current Complaints Both ankle and low back localized pain. History of Current Condition Pt reports present low back pain complaint has been chonic since 2007 and has had formal PT yearly with no complete recovery. She states currently on special treament for th nerve at the sacral region which they believe both heels sharp and burning pain is due to nerve issue. Patient reports she been using foot orthotics in more than 2 years as it was precribed by her podiatrists. She feels it helps to decrease pressure. Prior Treatments and Tests Multiple treaments with PT since 2007 [place] treament for both feet Future Testing and Treatments Planned Currently on HRT therapy Currently on special lumbasacral nerve therapy. Currently on long standing steroid medication Treatment Goals Patient/Caregiver Goals Patient would like to reduce low back pain from 8/10 to at least 3/10 Would like to eliminate both heel burning sensation. 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 Unable Current Functional Impairments (Reported) Functional Limitations- ADL's Indep with limitation in all activities that requires bending, lifting, and long distance ambulation Functional Limitations- Mobility/Gait 300 ft Functional Limitations- Recreation/ Unable to perform recreation Hobbies activities that requires dynamic standing PT-OP-C Subjective Start: 08/22/18 16:59 Freq: Status: Active Protocol: Document 09/19/18 09:51 EA (Rec: 09/19/18 09:55 EA [id number]) OP-PT Subjective Patient Comments Patient Comments Pt reports feeling she doing well; states able to stand with longer hours while working on 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 Patient Reported Progress Improving PT-OP-D Balance Start: 08/22/18 16:59 Freq: Status: Active Protocol: Document 08/22/18 17:20 EA (Rec: 08/23/18 16:22 EA [id number]) Balance Tests Single Limb Standing Single Limb- Right unable Single Limb- Left < 3 seconds PT-OP-G Mobility & Gait Start: 08/22/18 16:59 Freq: Status: Active Protocol: Document 08/22/18 17:11 EA (Rec: 08/22/18 17:39 EA [id number]) OP Gait Assessment Gait Gait Assistance Required: Independent Able to Maintain Weight Bearing Status Yes During Gait Assistive Devices Assistive Device Straight Cane Gait Deviations General Gait Pattern Antalgic Factors Limiting Gait Function Factors Limiting Gait Function Decreased Activity Tolerance Decreased Strength Pain PT-OP-J Posture/Palpation/Skin Start: 08/22/18 16:59 Freq: Status: Active Protocol: Document 08/22/18 17:20 EA (Rec: 08/23/18 16:20 EA [id number]) Posture Evaluation Comments Posture Comments Left shoulder depressed with left hip slightly elevated. Increased lumbar lordosis Palpation Assessment Location One Palpation Location Paralumbars, SI joint, right hip ER, Bilat ITB Palpation Findings Soft Tissue Tightness Tenderness Trigger Point PT-OP-K Range of Motion Start: 08/22/18 16:59 Freq: Status: Active Protocol: Document 08/22/18 17:20 EA (Rec: 08/23/18 16:20 EA [id number]) Lumbar Spine Range of Motion Lumbar Spine Percentage Testing Position Standing Flexion 60 Extension 100 Rotation Left 75 Rotation Right 75 Lateral Flexion Left 75 Lateral Flexion Right 65 ROM Limitations Soft Tissue Tightness Pain Ankle and Foot Goniometric Range of Motion Ankle and Foot Measured in Degrees Right Active Ankle/Foot ROM WFL Yes Left Active Ankle/Foot ROM WFL Yes PT-OP-L Special Tests Start: 08/22/18 16:59 Freq: Status: Active Protocol: Document 08/22/18 17:20 EA (Rec: 08/23/18 16:20 EA [id number]) Special Tests Lumbar Spine Special Tests Slump Test Results - Prone Instability Test Test Results - Straight Leg Raise Test Results - Hip Special Tests Piriformis Test Results Right sensitive Knee Special Tests Neel's Test Test Results + bilateral PT-OP-M Strength Start: 08/22/18 16:59 Freq: Status: Active Protocol: Document 08/22/18 17:20 EA (Rec: 08/23/18 16:20 EA [id number]) Hip Strength Hip Manual Muscle Testing Right Flexion (L2) 4 Good Extension (S1) 4 Good Abduction 4 Good External Rotation 4 Good Internal Rotation 4- Good- Left Flexion (L2) 4 Good Extension (S1) 4 Good Abduction 4 Good External Rotation 4 Good Internal Rotation 4- Good- Reason Not Measured WFL Knee Strength Knee Manual Muscle Testing Right Reason Not Measured WFL Left Reason Not Measured WFL Ankle/Foot Strength Ankle and Foot Manual Muscle Testing Right Dorsiflexion (L4) 4+ Good+ Plantarflexion (S1) 5 Normal Left Dorsiflexion (L4) 4+ Good+ Plantarflexion (S1) 5 Normal PT-OP-Q Treatments Start: 08/22/18 16:59 Freq: Status: Active Protocol: Document 09/19/18 09:51 EA (Rec: 09/19/18 09:55 EA [id number]) Cardio Equipment Recumbent Stepper (Sci-Fit) Duration (Minutes) 8 Resistance 1.5 Seat Position 9 Therapeutic Exercises Supine Exercises Trunk rotation with PT ball Side bilateral Equipment Used Red PT ball Reps/Minutes 10x each side Comments Cues for core engagement PPT with TA activiation Supine Exercise Name proressed to B marching Reps/Minutes 10x 5 Comments Cues for technique. DKTC Side bilateral Reps/Minutes 10 x 8 ITB stretch Side right Reps/Minutes 30 x 2 HS stretch Side bilateral Reps/Minutes 30 x 2 Comments supine Sidelying Exercises 3 Sidelying Exercise Name Hip ABD Reps/Minutes x 5 reps x 2 sets 1 Sidelying Exercise Name clamshell Side right Reps/Minutes x 10 reps Manual Therapy Treatment Soft Tissue Mobilization R ITB STM Body Location B ITB, hip e-rotators Mobilization Type Myofascial Release Intensity/Depth Superficial Body Position Sidelying Comments Application of Bio-freeze prior to STM PT-OP-T Assessment and Plan Start: 08/22/18 16:59 Freq: Status: Active Protocol: Document 09/19/18 10:35 ERUM (Rec: 09/19/18 10:36 EA [id number]) Physical Therapy Assessment Assessment Summary Assessment Pt tolerated manual therapy but still requires biofreeze prior to manual PT. Exercises tolerance is increase at this time. Patient cont. to progress. Physical Therapy Plan Next Visit Focus/Plan Next Note Type Treatment Note
--- NOTE | 2018-09-21 11:38 | PT.OTN ---
Current Diagnoses Pain in unspecified ankle and joints of unspecified foot (09/21/18) Other intervertebral disc degeneration, lumbar region (09/21/18) Physical Therapy Treatment Note PT-OP-A Visit Information Start: 08/22/18 16:59 Freq: Status: Active Protocol: Document 09/21/18 11:30 SA (Rec: 09/21/18 11:38 SA [id number]) Out-Patient Physical Therapy Visit Information Visit Information Visit Type Treatment Note Visit Start Time 09:45 Visit Stop Time 10:30 Visit Number 9 Number of NEWSPAPER CORRESPONDENT Visits 3 PT-OP-B Current Condition Start: 08/22/18 16:59 Freq: Status: Active Protocol: Document 08/22/18 17:11 EA (Rec: 08/22/18 17:39 EA [id number]) Current Condition History of Current Condition Onset Date > 10 years chronic condition Current Complaints Both ankle and low back localized pain. History of Current Condition Pt reports present low back pain complaint has been chonic since 2007 and has had formal PT yearly with no complete recovery. She states currently on special treament for th nerve at the sacral region which they believe both heels sharp and burning pain is due to nerve issue. Patient reports she been using foot orthotics in more than 2 years as it was precribed by her podiatrists. She feels it helps to decrease pressure. Prior Treatments and Tests Multiple treaments with PT since 2007 Primary Health Care Nurse treament for both feet Future Testing and Treatments Planned Currently on HRT therapy Currently on special lumbasacral nerve therapy. Currently on long standing steroid medication Treatment Goals Patient/Caregiver Goals Patient would like to reduce low back pain from 8/10 to at least 3/10 Would like to eliminate both heel burning sensation. 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 Unable Current Functional Impairments (Reported) Functional Limitations- ADL's Indep with limitation in all activities that requires bending, lifting, and long distance ambulation Functional Limitations- Mobility/Gait 300 ft Functional Limitations- Recreation/ Unable to perform recreation Hobbies activities that requires dynamic standing PT-OP-C Subjective Start: 08/22/18 16:59 Freq: Status: Active Protocol: Document 09/21/18 11:30 SA (Rec: 09/21/18 11:38 SA [id number]) OP-PT Subjective Patient Comments Patient Comments Pt reports slight increase in soreness d/c prolonged car ride and getting in/out of car a lot yesterday. Overall her symptoms are increaseing though. PT-OP-D Balance Start: 08/22/18 16:59 Freq: Status: Active Protocol: Document 08/22/18 17:20 EA (Rec: 08/23/18 16:22 EA [id number]) Balance Tests Single Limb Standing Single Limb- Right unable Single Limb- Left < 3 seconds PT-OP-G Mobility & Gait Start: 08/22/18 16:59 Freq: Status: Active Protocol: Document 08/22/18 17:11 EA (Rec: 08/22/18 17:39 EA [id number]) OP Gait Assessment Gait Gait Assistance Required: Independent Able to Maintain Weight Bearing Status Yes During Gait Assistive Devices Assistive Device Straight Cane Gait Deviations General Gait Pattern Antalgic Factors Limiting Gait Function Factors Limiting Gait Function Decreased Activity Tolerance Decreased Strength Pain PT-OP-J Posture/Palpation/Skin Start: 08/22/18 16:59 Freq: Status: Active Protocol: Document 08/22/18 17:20 EA (Rec: 08/23/18 16:20 EA [id number]) Posture Evaluation Comments Posture Comments Left shoulder depressed with left hip slightly elevated. Increased lumbar lordosis Palpation Assessment Location One Palpation Location Paralumbars, SI joint, right hip ER, Bilat ITB Palpation Findings Soft Tissue Tightness Tenderness Trigger Point PT-OP-K Range of Motion Start: 08/22/18 16:59 Freq: Status: Active Protocol: Document 08/22/18 17:20 EA (Rec: 08/23/18 16:20 EA [id number]) Lumbar Spine Range of Motion Lumbar Spine Percentage Testing Position Standing Flexion 60 Extension 100 Rotation Left 75 Rotation Right 75 Lateral Flexion Left 75 Lateral Flexion Right 65 ROM Limitations Soft Tissue Tightness Pain Ankle and Foot Goniometric Range of Motion Ankle and Foot Measured in Degrees Right Active Ankle/Foot ROM WFL Yes Left Active Ankle/Foot ROM WFL Yes PT-OP-L Special Tests Start: 08/22/18 16:59 Freq: Status: Active Protocol: Document 08/22/18 17:20 EA (Rec: 08/23/18 16:20 EA [id number]) Special Tests Lumbar Spine Special Tests Slump Test Results - Prone Instability Test Test Results - Straight Leg Raise Test Results - Hip Special Tests Piriformis Test Results Right sensitive Knee Special Tests Neel's Test Test Results + bilateral PT-OP-M Strength Start: 08/22/18 16:59 Freq: Status: Active Protocol: Document 08/22/18 17:20 EA (Rec: 08/23/18 16:20 EA [id number]) Hip Strength Hip Manual Muscle Testing Right Flexion (L2) 4 Good Extension (S1) 4 Good Abduction 4 Good External Rotation 4 Good Internal Rotation 4- Good- Left Flexion (L2) 4 Good Extension (S1) 4 Good Abduction 4 Good External Rotation 4 Good Internal Rotation 4- Good- Reason Not Measured WFL Knee Strength Knee Manual Muscle Testing Right Reason Not Measured WFL Left Reason Not Measured WFL Ankle/Foot Strength Ankle and Foot Manual Muscle Testing Right Dorsiflexion (L4) 4+ Good+ Plantarflexion (S1) 5 Normal Left Dorsiflexion (L4) 4+ Good+ Plantarflexion (S1) 5 Normal PT-OP-Q Treatments Start: 08/22/18 16:59 Freq: Status: Active Protocol: Document 09/21/18 11:30 SA (Rec: 09/21/18 11:38 SA [email or web address]) Cardio Equipment Recumbent Stepper (Sci-Fit) Duration (Minutes) 9 Resistance 1.5 Seat Position 9 Therapeutic Exercises Supine Exercises SLR with TA activation Side bilateral Reps/Minutes 10x each Trunk rotation with PT ball Side bilateral Equipment Used Red PT ball Reps/Minutes 15 each Comments Cues for core engagement PPT with TA activiation Supine Exercise Name proressed to B marching Reps/Minutes 10x 5 Comments Cues for technique. DKTC Side bilateral Reps/Minutes 10 x 8 ITB stretch Side right Reps/Minutes 30 x 2 HS stretch Side bilateral Reps/Minutes 30 x 2 Comments supine Sidelying Exercises 3 Sidelying Exercise Name Hip ABD Reps/Minutes x 5 reps x 2 sets Manual Therapy Treatment Soft Tissue Mobilization R ITB STM Body Location B ITB, hip e-rotators Mobilization Type Myofascial Release Intensity/Depth Superficial Body Position Sidelying Comments Application of Bio-freeze prior to STM PT-OP-T Assessment and Plan Start: 08/22/18 16:59 Freq: Status: Active Protocol: Document 09/21/18 11:30 SA (Rec: 09/21/18 11:38 SA [email or web address]) Physical Therapy Assessment Assessment Summary Assessment Pt with decreased ITB sensitivity and pain, tolerating ther ex well and increased standing/walking activity at home. Physical Therapy Plan Next Visit Focus/Plan Next Note Type Treatment Note Next Visit Plan Cont to progress lumbar mobility and core stabilization program.
--- NOTE | 2018-09-26 12:33 | PT.OTN ---
Current Diagnoses Pain in unspecified ankle and joints of unspecified foot (09/26/18) Other intervertebral disc degeneration, lumbar region (09/26/18) Physical Therapy Treatment Note PT-OP-A Visit Information Start: 08/22/18 16:59 Freq: Status: Active Protocol: Document 09/26/18 11:15 EA (Rec: 09/26/18 11:17 EA [id number]) Out-Patient Physical Therapy Visit Information Visit Information Visit Type Treatment Note Visit Start Time 09:45 Visit Stop Time 10:30 Total Visit Minutes 45 Visit Number 10 Number of COMPUTER AIDED DESIGN DRAFTER Visits 2 PT-OP-B Current Condition Start: 08/22/18 16:59 Freq: Status: Active Protocol: Document 08/22/18 17:11 EA (Rec: 08/22/18 17:39 EA [id number]) Current Condition History of Current Condition Onset Date > 10 years chronic condition Current Complaints Both ankle and low back localized pain. History of Current Condition Pt reports present low back pain complaint has been chonic since 2007 and has had formal PT yearly with no complete recovery. She states currently on special treament for th nerve at the sacral region which they believe both heels sharp and burning pain is due to nerve issue. Patient reports she been using foot orthotics in more than 2 years as it was precribed by her podiatrists. She feels it helps to decrease pressure. 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 Currently on long standing steroid medication Treatment Goals Patient/Caregiver Goals Patient would like to reduce low back pain from 8/10 to at least 3/10 Would like to eliminate both heel burning sensation. 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 Unable Current Functional Impairments (Reported) Functional Limitations- ADL's Indep with limitation in all activities that requires bending, lifting, and long distance ambulation Functional Limitations- Mobility/Gait 300 ft Functional Limitations- Recreation/ Unable to perform recreation Hobbies activities that requires dynamic standing PT-OP-C Subjective Start: 08/22/18 16:59 Freq: Status: Active Protocol: Document 09/26/18 11:15 EA (Rec: 09/26/18 11:17 EA [id number]) OP-PT Subjective Patient Comments Patient Comments Pt reports both legs are much feeling better today; states compliant with HEP. Patient Reported Progress Improving PT-OP-D Balance Start: 08/22/18 16:59 Freq: Status: Active Protocol: Document 08/22/18 17:20 EA (Rec: 08/23/18 16:22 EA [id number]) Balance Tests Single Limb Standing Single Limb- Right unable Single Limb- Left < 3 seconds PT-OP-G Mobility & Gait Start: 08/22/18 16:59 Freq: Status: Active Protocol: Document 08/22/18 17:11 EA (Rec: 08/22/18 17:39 EA [id number]) OP Gait Assessment Gait Gait Assistance Required: Independent Able to Maintain Weight Bearing Status Yes During Gait Assistive Devices Assistive Device Straight Cane Gait Deviations General Gait Pattern Antalgic Factors Limiting Gait Function Factors Limiting Gait Function Decreased Activity Tolerance Decreased Strength Pain PT-OP-J Posture/Palpation/Skin Start: 08/22/18 16:59 Freq: Status: Active Protocol: Document 08/22/18 17:20 EA (Rec: 08/23/18 16:20 EA [id number]) Posture Evaluation Comments Posture Comments Left shoulder depressed with left hip slightly elevated. Increased lumbar lordosis Palpation Assessment Location One Palpation Location Paralumbars, SI joint, right hip ER, Bilat ITB Palpation Findings Soft Tissue Tightness Tenderness Trigger Point PT-OP-K Range of Motion Start: 08/22/18 16:59 Freq: Status: Active Protocol: Document 08/22/18 17:20 EA (Rec: 08/23/18 16:20 EA [id number]) Lumbar Spine Range of Motion Lumbar Spine Percentage Testing Position Standing Flexion 60 Extension 100 Rotation Left 75 Rotation Right 75 Lateral Flexion Left 75 Lateral Flexion Right 65 ROM Limitations Soft Tissue Tightness Pain Ankle and Foot Goniometric Range of Motion Ankle and Foot Measured in Degrees Right Active Ankle/Foot ROM WFL Yes Left Active Ankle/Foot ROM WFL Yes PT-OP-L Special Tests Start: 08/22/18 16:59 Freq: Status: Active Protocol: Document 08/22/18 17:20 EA (Rec: 04/11/19 16:20 EA [id number]) Special Tests Lumbar Spine Special Tests Slump Test Results - Prone Instability Test Test Results - Straight Leg Raise Test Results - Hip Special Tests Piriformis Test Results Right sensitive Knee Special Tests Neel's Test Test Results + bilateral PT-OP-M Strength Start: 08/22/18 16:59 Freq: Status: Active Protocol: Document 08/22/18 17:20 EA (Rec: 08/23/18 16:20 EA [id number]) Hip Strength Hip Manual Muscle Testing Right Flexion (L2) 4 Good Extension (S1) 4 Good Abduction 4 Good External Rotation 4 Good Internal Rotation 4- Good- Left Flexion (L2) 4 Good Extension (S1) 4 Good Abduction 4 Good External Rotation 4 Good Internal Rotation 4- Good- Reason Not Measured WFL Knee Strength Knee Manual Muscle Testing Right Reason Not Measured WFL Left Reason Not Measured WFL Ankle/Foot Strength Ankle and Foot Manual Muscle Testing Right Dorsiflexion (L4) 4+ Good+ Plantarflexion (S1) 5 Normal Left Dorsiflexion (L4) 4+ Good+ Plantarflexion (S1) 5 Normal PT-OP-Q Treatments Start: 08/22/18 16:59 Freq: Status: Active Protocol: Document 09/26/18 11:15 EA (Rec: 09/26/18 11:17 EA [id number]) Cardio Equipment Recumbent Stepper (Sci-Fit) Duration (Minutes) 9 Resistance 1.5 Seat Position 9 Therapeutic Exercises Supine Exercises SLR with TA activation Side bilateral Reps/Minutes 10x each Trunk rotation with PT ball Side bilateral Equipment Used Red PT ball Reps/Minutes 15 each Comments Cues for core engagement PPT with TA activiation Supine Exercise Name proressed to B marching Reps/Minutes 10x 5 Comments Cues for technique. DKTC Side bilateral Reps/Minutes 10 x 8 ITB stretch Side right Reps/Minutes 30 x 2 HS stretch Side bilateral Reps/Minutes 30 x 2 Comments supine Sidelying Exercises 3 Sidelying Exercise Name Hip ABD Reps/Minutes x 5 reps x 2 sets 1 Sidelying Exercise Name clamshell Side right Reps/Minutes x 10 reps Manual Therapy Treatment Soft Tissue Mobilization Lumbar paraspinals Body Location Lumbar paraspinals Mobilization Type Myofascial Release Intensity/Depth Superficial Body Position Sidelying R ITB STM Body Location B ITB, hip e-rotators Mobilization Type Myofascial Release Intensity/Depth Superficial Body Position Sidelying Comments Application of Bio-freeze prior to STM PT-OP-T Assessment and Plan Start: 08/22/18 16:59 Freq: Status: Active Protocol: Document 09/26/18 11:15 ERUM (Rec: 09/26/18 11:17 EA [id number]) Physical Therapy Assessment Assessment Summary Assessment Tolerated treatment exercises well with no discomfort noted except with manual PT which only able to tolerated moderate intensity. Physical Therapy Plan Next Visit Focus/Plan Next Note Type Treatment Note Next Visit Plan Cont to progress lumbar mobility and core stabalization program.
--- NOTE | 2018-09-28 11:33 | PT.OTN ---
Current Diagnoses Pain in unspecified ankle and joints of unspecified foot (09/28/18) Other intervertebral disc degeneration, lumbar region (09/28/18) Physical Therapy Treatment Note PT-OP-A Visit Information Start: 08/22/18 16:59 Freq: Status: Active Protocol: Document 09/28/18 11:27 SA (Rec: 09/28/18 11:33 SA [email or web address]) Out-Patient Physical Therapy Visit Information Visit Information Visit Type Treatment Note Visit Start Time 09:45 Visit Stop Time 10:30 Total Visit Minutes 45 Visit Number 11 Number of MARINE EQUIPMENT RESEARCH ENGINEER Visits 1 PT-OP-B Current Condition Start: 08/22/18 16:59 Freq: Status: Active Protocol: Document 08/22/18 17:11 EA (Rec: 08/22/18 17:39 EA [id number]) Current Condition History of Current Condition Onset Date > 10 years chronic condition Current Complaints Both ankle and low back localized pain. History of Current Condition Pt reports present low back pain complaint has been chonic since 2007 and has had formal PT yearly with no complete recovery. She states currently on special treament for th nerve at the sacral region which they believe both heels sharp and burning pain is due to nerve issue. Patient reports she been using foot orthotics in more than 2 years as it was precribed by her podiatrists. She feels it helps to decrease pressure. 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 Currently on long standing steroid medication Treatment Goals Patient/Caregiver Goals Patient would like to reduce low back pain from 8/10 to at least 3/10 Would like to eliminate both heel burning sensation. 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 Unable Current Functional Impairments (Reported) Functional Limitations- ADL's Indep with limitation in all activities that requires bending, lifting, and long distance ambulation Functional Limitations- Mobility/Gait 300 ft Functional Limitations- Recreation/ Unable to perform recreation Hobbies activities that requires dynamic standing PT-OP-C Subjective Start: 08/22/18 16:59 Freq: Status: Active Protocol: Document 09/28/18 11:27 SA (Rec: 09/28/18 11:33 SA [email or web address]) OP-PT Subjective Patient Comments Patient Comments Pt having off day today, reports increased heel pain and R sacral pain. PT-OP-D Balance Start: 08/22/18 16:59 Freq: Status: Active Protocol: Document 08/22/18 17:20 EA (Rec: 08/23/18 16:22 EA [id number]) Balance Tests Single Limb Standing Single Limb- Right unable Single Limb- Left < 3 seconds PT-OP-G Mobility & Gait Start: 08/22/18 16:59 Freq: Status: Active Protocol: Document 08/22/18 17:11 EA (Rec: 08/22/18 17:39 EA [id number]) OP Gait Assessment Gait Gait Assistance Required: Independent Able to Maintain Weight Bearing Status Yes During Gait Assistive Devices Assistive Device Straight Cane Gait Deviations General Gait Pattern Antalgic Factors Limiting Gait Function Factors Limiting Gait Function Decreased Activity Tolerance Decreased Strength Pain PT-OP-J Posture/Palpation/Skin Start: 08/22/18 16:59 Freq: Status: Active Protocol: Document 08/22/18 17:20 EA (Rec: 08/23/18 16:20 EA [id number]) Posture Evaluation Comments Posture Comments Left shoulder depressed with left hip slightly elevated. Increased lumbar lordosis Palpation Assessment Location One Palpation Location Paralumbars, SI joint, right hip ER, Bilat ITB Palpation Findings Soft Tissue Tightness Tenderness Trigger Point PT-OP-K Range of Motion Start: 08/22/18 16:59 Freq: Status: Active Protocol: Document 08/22/18 17:20 EA (Rec: 08/23/18 16:20 EA [id number]) Lumbar Spine Range of Motion Lumbar Spine Percentage Testing Position Standing Flexion 60 Extension 100 Rotation Left 75 Rotation Right 75 Lateral Flexion Left 75 Lateral Flexion Right 65 ROM Limitations Soft Tissue Tightness Pain Ankle and Foot Goniometric Range of Motion Ankle and Foot Measured in Degrees Right Active Ankle/Foot ROM WFL Yes Left Active Ankle/Foot ROM WFL Yes PT-OP-L Special Tests Start: 08/22/18 16:59 Freq: Status: Active Protocol: Document 08/22/18 17:20 EA (Rec: 08/23/18 16:20 EA [id number]) Special Tests Lumbar Spine Special Tests Slump Test Results - Prone Instability Test Test Results - Straight Leg Raise Test Results - Hip Special Tests Piriformis Test Results Right sensitive Knee Special Tests Neel's Test Test Results + bilateral PT-OP-M Strength Start: 08/22/18 16:59 Freq: Status: Active Protocol: Document 08/22/18 17:20 EA (Rec: 08/23/18 16:20 EA [id number]) Hip Strength Hip Manual Muscle Testing Right Flexion (L2) 4 Good Extension (S1) 4 Good Abduction 4 Good External Rotation 4 Good Internal Rotation 4- Good- Left Flexion (L2) 4 Good Extension (S1) 4 Good Abduction 4 Good External Rotation 4 Good Internal Rotation 4- Good- Reason Not Measured WFL Knee Strength Knee Manual Muscle Testing Right Reason Not Measured WFL Left Reason Not Measured WFL Ankle/Foot Strength Ankle and Foot Manual Muscle Testing Right Dorsiflexion (L4) 4+ Good+ Plantarflexion (S1) 5 Normal Left Dorsiflexion (L4) 4+ Good+ Plantarflexion (S1) 5 Normal PT-OP-Q Treatments Start: 08/22/18 16:59 Freq: Status: Active Protocol: Document 09/28/18 11:27 SA (Rec: 09/28/18 11:33 SA [email or web address]) Cardio Equipment Recumbent Stepper (Sci-Fit) Duration (Minutes) 10 Resistance 1.5 Seat Position 9 Therapeutic Exercises Supine Exercises SLR with TA activation Side bilateral Reps/Minutes 10x each Trunk rotation with PT ball Side bilateral Equipment Used Red PT ball Reps/Minutes 15 each Comments Cues for core engagement PPT with TA activiation Supine Exercise Name proressed to B julying Reps/Minutes 10x 5 Comments Cues for technique. DKTC Side bilateral Reps/Minutes 10 x 8 ITB stretch Side bilateral Reps/Minutes 30 x 2 HS stretch Side bilateral Reps/Minutes 30 x 2 Comments supine Sidelying Exercises 3 Sidelying Exercise Name Hip ABD Reps/Minutes x 5 reps x 2 sets 1 Sidelying Exercise Name clamshell Side right Reps/Minutes x 10 reps Manual Therapy Treatment Soft Tissue Mobilization Lumbar paraspinals Body Location R lumbo/sacral area Mobilization Type Myofascial Release Intensity/Depth Superficial Body Position Sidelying R ITB STM Body Location B ITB, hip e-rotators Mobilization Type Myofascial Release Intensity/Depth Superficial Body Position Sidelying Comments Application of Bio-freeze prior to STM PT-OP-T Assessment and Plan Start: 08/22/18 16:59 Freq: Status: Active Protocol: Document 09/28/18 11:27 SA (Rec: 09/28/18 11:33 SA [email or web address]) Physical Therapy Assessment Assessment Summary Assessment Pt with improved symptoms at end of session, has appointment with pain specialist next Wed and is hoping to have nerve treatment that decreases pain. Physical Therapy Plan Next Visit Focus/Plan Next Note Type Treatment Note Next Visit Plan Cont to progress lumbar mobility and core stabalization program.
--- NOTE | 2018-12-04 12:44 | PT.OPDS ---
Current Diagnoses Pain in unspecified ankle and joints of unspecified foot (09/28/18) Other intervertebral disc degeneration, lumbar region (09/28/18) Provider Visit Care Team Role Provider Type Angel Aranda DO Family Provider Non-Staff Specialty: Medical Address: [address] [place] [address], [id number] Email: Christelle Palafox MD Attending Provider Non-Staff Primary Care Provider Specialty: Internal Medicine Address: [address] [place] [address], [id number] Email: [email or web address] Computer Visit Number Visit Number 11 Discharge Summary PT-OP-B Current Condition Start: 08/22/18 16:59 Freq: Status: Active Protocol: Document 08/22/18 17:11 EA (Rec: 08/22/18 17:39 EA [id number]) Current Condition History of Current Condition Onset Date > 10 years chronic condition Current Complaints Both ankle and low back localized pain. History of Current Condition Pt reports present low back pain complaint has been chonic since 2007 and has had formal PT yearly with no complete recovery. She states currently on special treament for th nerve at the sacral region which they believe both heels sharp and burning pain is due to nerve issue. Patient reports she been using foot orthotics in more than 2 years as it was precribed by her podiatrists. She feels it helps to decrease pressure. 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 Currently on long standing steroid medication Treatment Goals Patient/Caregiver Goals Patient would like to reduce low back pain from 8/10 to at least 3/10 Would like to eliminate both heel burning sensation. 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 Unable Current Functional Impairments (Reported) Functional Limitations- ADL's Indep with limitation in all activities that requires bending, lifting, and long distance ambulation Functional Limitations- Mobility/Gait 300 ft Functional Limitations- Recreation/ Unable to perform recreation Hobbies activities that requires dynamic standing PT-OP-C Subjective Start: 08/22/18 16:59 Freq: Status: Active Protocol: Document 12/04/18 12:42 EA (Rec: 12/04/18 12:44 EA [id number]) OP-PT Subjective Patient Comments Patient Comments Pt reports by phone today to discharge to PT as she feels a okay. She reports awaiting for neurologist schedule for further evaluation. PT-OP-D Balance Start: 08/22/18 16:59 Freq: Status: Active Protocol: Document 08/22/18 17:20 EA (Rec: 08/23/18 16:22 EA [id number]) Balance Tests Single Limb Standing Single Limb- Right unable Single Limb- Left < 3 seconds PT-OP-G Mobility & Gait Start: 08/22/18 16:59 Freq: Status: Active Protocol: Document 08/22/18 17:11 EA (Rec: 08/22/18 17:39 EA [id number]) OP Gait Assessment Gait Gait Assistance Required: Independent Able to Maintain Weight Bearing Status Yes During Gait Assistive Devices Assistive Device Straight Cane Gait Deviations General Gait Pattern Antalgic Factors Limiting Gait Function Factors Limiting Gait Function Decreased Activity Tolerance Decreased Strength Pain PT-OP-J Posture/Palpation/Skin Start: 08/22/18 16:59 Freq: Status: Active Protocol: Document 08/22/18 17:20 EA (Rec: 08/23/18 16:20 EA [id number]) Posture Evaluation Comments Posture Comments Left shoulder depressed with left hip slightly elevated. Increased lumbar lordosis Palpation Assessment Location One Palpation Location Paralumbars, SI joint, right hip ER, Bilat ITB Palpation Findings Soft Tissue Tightness Tenderness Trigger Point PT-OP-K Range of Motion Start: 08/22/18 16:59 Freq: Status: Active Protocol: Document 08/22/18 17:20 EA (Rec: 08/23/18 16:20 EA [id number]) Lumbar Spine Range of Motion Lumbar Spine Percentage Testing Position Standing Flexion 60 Extension 100 Rotation Left 75 Rotation Right 75 Lateral Flexion Left 75 Lateral Flexion Right 65 ROM Limitations Soft Tissue Tightness Pain Ankle and Foot Goniometric Range of Motion Ankle and Foot Right Active Ankle/Foot ROM WFL Yes Left Active Ankle/Foot ROM WFL Yes PT-OP-L Special Tests Start: 08/22/18 16:59 Freq: Status: Active Protocol: Document 08/22/18 17:20 EA (Rec: 08/23/18 16:20 EA [id number]) Special Tests Lumbar Spine Special Tests Slump Test Results - Prone Instability Test Test Results - Straight Leg Raise Test Results - Hip Special Tests Piriformis Test Results Right sensitive Knee Special Tests Neel's Test Test Results + bilateral PT-OP-M Strength Start: 08/22/18 16:59 Freq: Status: Active Protocol: Document 08/22/18 17:20 EA (Rec: 08/23/18 16:20 EA [id number]) Hip Strength Hip Manual Muscle Testing Right Flexion (L2) 4 Good Extension (S1) 4 Good Abduction 4 Good External Rotation 4 Good Internal Rotation 4- Good- Left Flexion (L2) 4 Good Extension (S1) 4 Good Abduction 4 Good External Rotation 4 Good Internal Rotation 4- Good- Reason Not Measured WFL Knee Strength Knee Manual Muscle Testing Right Reason Not Measured WFL Left Reason Not Measured WFL Ankle/Foot Strength Ankle and Foot Manual Muscle Testing Right Dorsiflexion (L4) 4+ Good+ Plantarflexion (S1) 5 Normal Left Dorsiflexion (L4) 4+ Good+ Plantarflexion (S1) 5 Normal PT-OP-T Assessment and Plan Start: 08/22/18 16:59 Freq: Status: Active Protocol: Document 12/04/18 12:42 EA (Rec: 12/04/18 12:44 EA [id number]) Physical Therapy Assessment Assessment Summary Assessment Patient requested to discharge today. She is awaiting neurologist schedule for further low back evaluation. Physical Therapy Plan Discharge Physical Therapy Discharge Reasons Patient Request
== END 2018-12-06 13:45 ==
LOC: PHYS 09:45
PROVIDERS: Family Provider Anesthesiology; PCP Internal Medicine; Visit Provider Internal Medicine
DX: M51.36 Other intervertebral disc degeneration, lumbar region (principal); M25.579 Pain in unspecified ankle and joints of unspecified foot
CPT/HCPCS: 97110; 97140; 97163

== ENCOUNTER → 2019-07-03 13:42 | Outpatient (CLI) | payer MEDICARE, OTHER, SELFPAY | PROVIDERS: Family Provider Anesthesiology; PCP Internal Medicine; Referring Provider Internal Medicine Rheumatology; Visit Provider Internal Medicine Rheumatology | DX: M85.852 Other specified disorders of bone density and structure, left thigh (principal); Z78.0 Asymptomatic menopausal state; Z87.891 Personal history of nicotine dependence | CPT/HCPCS: 77080 ==

== ENCOUNTER 2022-02-21 09:41 | Emergency (ER) | payer MEDICARE, OTHER, SELFPAY ==
[2022-02-21 10:06] VITALS: BP 145/77; PULSE 75; RESP 17; TEMP 36.5; O2SAT 99
--- NOTE | 2022-02-21 10:10 | DI.RAD.S_ITS ---
PROCEDURE: XR HIP W PEL IF DONE RT 2V INDICATIONS: strain TECHNIQUE: 2 views of the hip were acquired. COMPARISON: [facility], RF, SI JOINT INJECTION, 01/28/2016, 9:45. [facility], CR, XR LUMBAR SPINE WITH OLBIQUES PLUS FLEXION EXTENSION, 08/21/2018, 16:16. FINDINGS: Bones: Right femoral head is appropriate contour. No dislocation. Cortical regularity in the right inferior pubic rami noted. Soft tissues: No suspicious soft tissue calcifications or masses. Multiple surgical clips overlie the right inguinal canal and right IMPRESSION: Nondisplaced right inferior pubic rami fracture, probably old. Consider follow-up CT if clinically relevant Approved by: Cristi Contreras M.D. on 02/21/2022 at 10:07
[2022-02-21 12:40] VITALS: BP 193/91; PULSE 77; RESP 16; O2SAT 100
[2022-02-21 14:40] VITALS: BP 145/61; PULSE 79; RESP 14; O2SAT 100
--- NOTE | 2022-02-21 14:51 | ED.LOWEXIN ---
HPI - Extremity Injury (Lower) <Mitch Cyr PA-C - Last Filed: 02/21/22 20:45> General Chief Complaint: Extremity Injury, Lower Stated Complaint: R Hip Pain Time Seen by Provider: 02/21/22 11:01 Source: patient and family Mode of arrival: Wheelchair History of Present Illness HPI Narrative: 66-year-old female presents to the ED with 3 days of right-sided groin and hip pain. Patient states that she has been doing physical therapy for about a month and a half, but after physical therapy 4 days ago, she started experiencing the right groin and hip pain. Patient states that she is had a fall about 2-3 weeks ago. No recent trauma. Patient denies numbness, tingling, weakness. Patient states that she is having trouble bearing weight on the right foot and walking. Patient was able to ambulate with a walker prior to this. Related Data Home Medications Medication Instructions Recorded Confirmed celecoxib 200 mg capsule 200 mg PO BID 09/24/21 01/10/22 diclofenac sodium 1 % topical gel 2 g topical QID PRN 09/24/21 01/10/22 (Arthritis Pain (diclofenac)) prednisone 5 mg tablet 5 mg PO DAILY 09/24/21 01/10/22 Previous Rx's Medication Instructions Recorded duloxetine 60 mg capsule,delayed 60 mg PO DAILY #90 caps 09/24/21 release gabapentin 800 mg tablet 800 mg PO TID #270 tabs 09/24/21 pramipexole 0.125 mg tablet 0.25 mg PO DAILY #180 tabs 09/24/21 tolterodine 4 mg capsule,extended 4 mg PO DAILY #90 caps 09/24/21 release 24 hr hydrocodone 5 mg-acetaminophen 325 1 tab PO BID PRN pain #60 tabs 01/10/22 mg tablet hydrocodone 5 mg-acetaminophen 325 1 tab PO BID PRN pain #60 tabs 01/10/22 mg tablet hydrocodone 5 mg-acetaminophen 325 1 tab PO BID PRN pain #60 tabs 01/10/22 mg tablet Allergies Allergy/AdvReac Type Severity Reaction Status Date / Time hydroxychloroquine Allergy Mild EYE Verified 01/10/22 10:24 [From PLAQUENIL] DRAINAGE Penicillins [PENICILLINS] Allergy Mild HIVES Verified 01/10/22 10:24 PAPER TAPE Allergy Mild Uncoded 01/10/22 10:24 Review of Systems <Mitch Cyr PA-C - Last Filed: 02/21/22 20:45> Review of Systems ROS Unobtainable: All systems reviewed & are unremarkable except as noted in HPI and below Constitutional Constitutional: Denies chills, Denies fatigue, Denies fever(s), Denies frequent falls, Denies lethargy and Denies weakness Eyes Eyes: Denies change in vision, Denies eye discharge, Denies irritation and Denies loss of vision ENT Ears, Nose, Mouth, and Throat: Denies change in voice, Denies dizziness, Denies neck pain, Denies sore throat and Denies throat swelling Cardiovascular Cardiovascular: Denies chest pain, Denies irregular heart rhythm, Denies lightheadedness, Denies palpitations, Denies dyspnea, Denies dyspnea on exertion and Denies orthopnea Respiratory Respiratory: Denies cough, Denies dyspnea, Denies dyspnea on exertion and Denies wheezing Gastrointestinal Gastrointestinal: Denies abdominal pain, Denies change in bowel habits, Denies diarrhea, Denies nausea and Denies vomiting Genitourinary Genitourinary: Denies hematuria, Denies flank pain, Denies urinary incontinence and Denies urinary urgency Musculoskeletal Musculoskeletal: Denies back pain, Denies muscle weakness, Denies neck pain, Denies numbness and Denies tingling Comments: Right hip pain Integumentary/Breasts Skin/Breast: Denies pruritus, Denies erythema, Denies rash and Denies wounds Neurologic Neurologic: Denies behavioral changes, Denies confusion, Denies dizziness, Denies frequent falls, Denies loss of vision, Denies numbness, Denies tingling and Denies weakness Psychiatric Psychiatric: Denies anxiety, Denies behavioral changes, Denies confusion, Denies depression, Denies homicidal ideation and Denies suicidal ideation Endocrine Endocrine: Denies fatigue, Denies flushing and Denies palpitations Hematologic/Lymphatic Hematologic/Lymphatic: Denies easy bruising Allergic/Immunologic Allergic/Immunologic: Denies urticaria, Denies throat swelling and Denies wheezing Patient History <Mitch Cyr PA-C - Last Filed: 02/21/22 20:45> Medical History Back pain, chronic Chronic adrenal insufficiency Chronic, continuous use of opioids Hemolytic anemia Lupus Restless legs syndrome Strain of right hip and thigh Urinary incontinence Social History Smoking Status: Former smoker Smoking Status: Former smoker alcohol intake frequency: other Substance Use Type: does not use Exam <Mitch Cyr PA-C - Last Filed: 02/21/22 20:45> Narrative Exam Narrative: Const General:?cooperative, healthy appearing and comfortable HENMT Head:?normal to inspection Ears:?hearing grossly normal bilaterally Nose:?external nose normal Face and sinus:?normal facial exam and sinuses nontender Mouth:?oral mucosae normal Throat:?posterior oropharynx normal Eyes General:?appearance normal, both eyes and all related structures Neck Neck:?normal visual inspection and no lymphadenopathy noted Resp Effort & Inspection:?normal respiratory effort Auscultation:?clear to auscultation bilaterally Cardio Rate:?regular rate Rhythm:?regular rhythm Musculoskeletal No bruising, deformities noted on exam. Skin is intact. Patient is unable to bear weight and stand. Patient is neurovascularly intact Neuro General:?patient alert, patient awake and patient oriented x3 Initial Vital Signs Initial Vital Signs: Vital Signs Temperature 97.7 F 02/21/22 10:06 Pulse Rate 75 02/21/22 10:06 Respiratory Rate 17 02/21/22 10:06 Blood Pressure 145/77 H 02/21/22 10:06 Pulse Oximetry 99 02/21/22 10:06 Oxygen Delivery Method 02/21/22 10:06 <Wan Aguero DO - Last Filed: 02/24/22 07:31> Initial Vital Signs Initial Vital Signs: Vital Signs Temperature 97.7 F 02/21/22 10:06 Pulse Rate 75 02/21/22 10:06 Respiratory Rate 17 02/21/22 10:06 Blood Pressure 145/77 H 02/21/22 10:06 Pulse Oximetry 99 02/21/22 10:06 Oxygen Delivery Method 02/21/22 10:06 Course <Mitch Cyr PA-C - Last Filed: 02/21/22 20:45> Orders Ordered: ED Orders 02/21/22 13:39 Consult to SAFETY TECHNICIAN - Customer Management Specialist Stat Vital Signs Vital signs: Vital Signs - 8 hr 02/21/22 12:40 02/21/22 14:40 Pulse Rate 77 79 Respiratory Rate 16 14 Blood Pressure 193/91 H 145/61 H Pulse Oximetry 100 100 Oxygen Delivery Method Room Air Room Air <Wan DO More - Last Filed: 02/24/22 07:31> Orders Ordered: ED Orders 02/21/22 13:39 Consult to SAFETY TECHNICIAN - Customer Management Specialist Stat Vital Signs Vital signs: Vital Signs - 8 hr 02/21/22 12:40 02/21/22 14:40 Pulse Rate 77 79 Respiratory Rate 16 14 Blood Pressure 193/91 H 145/61 H Pulse Oximetry 100 100 Oxygen Delivery Method Room Air Room Air [facility] - Extremity Injury (Lower) <Mitch Cyr PA-C - Last Filed: 02/21/22 20:45> Imaging Data Extremity x-ray #1: Radiologist's Impression: PROCEDURE:? XR HIP W PEL IF DONE RT 2V ? INDICATIONS:? strain ? TECHNIQUE:? 2 views of the hip were acquired.? ? COMPARISON:? [facility], RF, SI JOINT INJECTION, 01/28/2016, 9:45.? [facility], CR, XR LUMBAR SPINE WITH OLBIQUES PLUS FLEXION EXTENSION, 08/21/2018, 16:16. ? FINDINGS:? ? Bones:? Right femoral head is appropriate contour.? No dislocation.? Cortical regularity in the right inferior pubic rami noted. ? Soft tissues:? No suspicious soft tissue calcifications or masses.? Multiple surgical clips overlie the right inguinal canal and right ? IMPRESSION:? ? Nondisplaced right inferior pubic rami fracture, probably old.? Consider follow-up CT if clinically relevant ? ? Approved by: Cristi Contreras M.D. on 02/21/2022 at 10:07? [facility] Narrative Medical decision making narrative: 66-year-old female presents to the ED with 3 days of right-sided groin and hip pain. Concern for fracture/dislocation. X-ray shows Nondisplaced right inferior pubic rami fracture, probably old. Patient's fall 2-3 weeks ago could have caused this fracture. Recommend RICE, follow-up with PT, follow-up with PCP. Patient already takes Celebrex and Vicodin for chronic pains, recommend continuing this. Social work consult was placed to help patient with possible home health aide. Social work will call patient tomorrow to follow-up. Discharge patient home with ED return precautions. Patient verbalized understanding. Discharge Plan Departure Patient Disposition: Home Clinical Impression: Closed fracture of pubic ramus Instructions: DI for Pelvic Fracture Activity Restrictions/Additional Instructions: You were evaluated in the ED today for right-sided hip and groin pain. Your x-ray shows a right inferior pubic ramus fracture, which appears to have occurred sometime ago. The pelvis is stable, and it is recommended that you rest, avoid weight-bearing until your symptoms subside. It may take up to 3 months for the fracture to completely heal. You may continue to take the Vicodin and Celebrex that you normally take for your other aches and pains. Please follow-up with an pc support specialist, you may call [facility] at [phone]. Return to the ED if your symptoms worsen, you experience chest pain, shortness of breath. Prescriptions: No Action prednisone 5 mg tablet 5 mg PO DAILY celecoxib 200 mg capsule 200 mg PO BID diclofenac sodium [Arthritis Pain (diclofenac)] 1 % gel 2 g topical QID PRN Rx Instructions: apply to single elbow, wrist or hand; for hand includes palm/fingers/back of hand gabapentin 800 mg tablet 800 mg PO TID Qty: 270 1RF duloxetine 60 mg capsule,delayed release(DR/EC) 60 mg PO DAILY Qty: 90 3RF pramipexole 0.125 mg tablet 0.25 mg PO DAILY Qty: 180 3RF tolterodine 4 mg capsule,extended release 24hr 4 mg PO DAILY Qty: 90 3RF hydrocodone-acetaminophen 5-325 mg tablet 1 tab PO BID PRN (Reason: pain) Qty: 60 0RF hydrocodone-acetaminophen 5-325 mg tablet 1 tab PO BID PRN (Reason: pain) Qty: 60 0RF hydrocodone-acetaminophen 5-325 mg tablet 1 tab PO BID PRN (Reason: pain) Qty: 60 0RF Referrals: Grant Alford MD [Primary Care Provider] - Visit Report Forms: Patient Portal/API <Wan Aguero DO - Last Filed: 02/24/22 07:31> [facility] Attestation: Dr Aguero Co-Sign Statement: I was available for consultation during this patient's emergency department visit. This chart is signed by myself for administrative purposes only. I did not have direct contact with this patient during this visit. They were seen independently by the APC.
== END 2022-02-21 14:42 | disposition home or self-care (01) ==
PROVIDERS: Emergency Provider Student in an Organized Health Care Education/Training Program; Family Provider Anesthesiology; PCP Internal Medicine
DX: S32.501A Unspecified fracture of right pubis, initial encounter for closed fracture (principal); W19.XXXA Unspecified fall, initial encounter
CPT/HCPCS: 73502; 99283

== ENCOUNTER → 2022-04-13 15:46 | Outpatient (CLI) | payer MEDICARE, OTHER, SELFPAY ==
[2022-04-13 16:17] LABS: Cholesterol 242 mg/dL (140-199); HDL Cholesterol 61 mg/dL (40-60); LDL Cholesterol Calculated 123 mg/dL (<100); Triglycerides 291 mg/dL (35-150)
== END ==
PROVIDERS: Family Provider Anesthesiology; PCP Internal Medicine; Referring Provider Internal Medicine; Visit Provider Internal Medicine
DX: E78.2 Mixed hyperlipidemia (principal)
CPT/HCPCS: 36415; 80061

== ENCOUNTER → 2022-11-14 08:42 | Outpatient (CLI) | payer MEDICARE, OTHER, SELFPAY ==
--- NOTE | 2022-11-14 08:43 | DI.RAD.S_ITS ---
PROCEDURE: XR LUMBAR SPINE MIN 4V INDICATIONS: low back pain TECHNIQUE: 5 views of the lumbar spine were acquired, including bilateral oblique views. COMPARISON: [facility], CR, XR LUMBAR SPINE WITH OBLIQUES PLUS FLEXION EXTENSION, 09/01/2021, 9:08. Outside Facility, RG, MRI L-SPINE W/O CONTRAST, 06/22/2022, 16:28. [facility], CR, L-SPINE 2-3 VIEWS, 12/28/2016, 10:10. FINDINGS: Bones: Transitional spinal anatomy again noted with probable rudimentary ribs at T12. Generalized osteopenia. Moderate dextroconvex curvature of the lumbar spine. No vertebral body compression fractures. No suspicious bony lesions. Multilevel disc space narrowing degenerative endplate changes and multilevel facet hypertrophy are noted. Soft tissues: Overlying bowel gas pattern is normal. No suspicious soft tissue calcifications. Oblique images: No pars defects. IMPRESSION: Moderate dextroconvex curvature. Moderate multilevel spondylosis. Approved by: Lazaro Casas M.D. on 11/14/2022 at 13:39
== END ==
PROVIDERS: Family Provider Anesthesiology; PCP Internal Medicine; Referring Provider Anesthesiology; Visit Provider Anesthesiology
DX: M47.816 Spondylosis without myelopathy or radiculopathy, lumbar region (principal); R26.81 Unsteadiness on feet; F11.90 Opioid use, unspecified, uncomplicated; M54.50 Low back pain, unspecified
CPT/HCPCS: 72110; 99214

== ENCOUNTER 2022-12-14 14:45 | Outpatient (CLI) | payer MEDICARE, OTHER, SELFPAY ==
--- NOTE | 2022-12-14 14:46 | DI.RAD.S_ITS ---
PROCEDURE: PAIN L/SI FACET INJ/BLK 1STL INDICATIONS: SPONDYLOSIS COMPARISON: [facility], , PAIN L FAC INJ/BLK SI BLK 1STL, 12/28/2016, 9:14. FINDINGS: Fluoroscopic spot filming was performed to verify placement of spinal needles on the right at the L3, L4, and L5 levels, as labeled on the films. Appropriate location of the needle tips was confirmed by injection of iodinated contrast. IMPRESSION: Intraprocedural examination demonstrating appropriate positions of the needles. Dictated by: Luis Jiménez M.D. on 12/15/2022 at 12:06 Approved by: Luis Jiménez M.D. on 12/15/2022 at 12:06
[2022-12-14 14:55] VITALS: BP 180/88; PULSE 92; RESP 20; TEMP 36.2; O2SAT 97
[2022-12-14 15:16] VITALS: BP 177/79; PULSE 84; RESP 19; O2SAT 97
[2022-12-14] MEDS: BUPIVACAINE 0.5% (PF) 10 ML VIAL 5 ML INJ (15:17)
[2022-12-14] MEDS: IOPAMIDOL 15 ML VIAL 3 ML INJ (15:17)
[2022-12-14 15:21] VITALS: BP 162/71; PULSE 80; RESP 12; O2SAT 97
[2022-12-14 15:25] VITALS: BP 163/75; PULSE 80; RESP 17; O2SAT 100
--- NOTE | 2022-12-14 15:30 | P.PCN_ITS ---
Date/Time/Diagnoses Date of procedure: 12/14/22 Time of procedure: 14:30 Procedure Notes Physician: Jensen Hurst Total Fluoroscopy time (seconds): 16 Total sedation minutes: 0 Procedure in detail & Post-procedure care: Right L3, 4, 5 Lumbar Medial Branch Blocks Indications: Deja is presenting for treatment of lumbar spondylosis with low back pain. Preoperative diagnosis: Right lumbar spondylosis Postoperative diagnosis: Same Pre-procedure History: F Patient demonstrates today moderate to severe non- radicular back pain without neurologic deficit aggravated by hyperextension yes Back pain greater than leg pain? yes Patient today has tenderness over the suspected joint(s) yes History of post-traumatic injury? no Hypertrophic arthropathy yes Back pain associated with suspected motion segment instability, hypermobility or pseudoarthrosis no Pre-testing pain score (VAS): 5/10 Focused Examination: Ax3 Mood and affect are normal Vital Signs: VSS Consent: Following review of allergies and potential side effects/complications, including, but not necessarily limited to, infection, allergic reaction, local tissue breakdown, stroke, temporary or permanent nerve injury, paralysis, and possible , the patient indicated that they understood and agreed to proceed.? An informed consent document was signed by the patient, witnessed by a nurse and placed in the patient's chart.? Additionally, other treatment options including medications and physical therapy were reviewed with the patient. All questions were answered. Site was then marked. Anesthesia: Local Position: Prone Monitoring: NIBP, Pulse oximetry, 3 lead EKG Needle used: 22 ga 5 inch spinal needle Contrast: Isovue 300M Injectate: 0.5% bupivacaine 1 cc per site Procedure: The patient was brought into the procedure room and positioned into the prone position. Skin was prepped with a Chloraprep solution, allowed to air dry, and then draped in sterile fashion.? The right L4-5 and L5-S1 facet joints were visually identified with fluoroscopy. Lidocaine 1% was used to anesthetize the skin over each target destination with a 25ga needle. A 22 ga, 3.5 inch spinal needle was advanced to the location of the medial branch at the junction of the superior articular process and the transverse process at right L3,4 using intermittent fluoroscopy in the AP view. Isovue 300M contrast 0.2ml was injected at each level outlining the medial borders for each level and the base of the SAP of the sacrum in the AP and lateral views. There was no evidence of vascular or intrathecal uptake. The above injectate was slowly injected at each target destination. Post Procedure: Patient was taken to the recovery and monitored. The patient was provided a Pain Log to continue to record the patient's response to the target- specific procedure prior to the patient's follow-up visit with the referring physician. Patient was stable upon discharge. Detailed post procedure instructions were provided. Patient was asked to call in the event of worsening pain, fever, weakness, numbness or bladder or bowel incontinence. Postoperatively, today patient demonstrates the following changes with hyperextension and with tenderness over the suspected joint(s). Provacative testing using the Chow's facet loading test Right side Directly before the block ?VAS (0-10) = 5/10 5 minutes after the block VAS (0-10) = 1/10 Percentage relief obtained with this diagnostic block 80% Any improved physical functioning directly after the blocks? Range of motion Based on the medial branches blocked today, if the patient meets insurance criteria for radiofrequency, the treatment should result in the denervation of the right L4-5 and L5-S1 facet joint nerves. We would expect to denervate a total of 2 facets during the radiofrequency ablation.
[2022-12-14 15:31] VITALS: BP 175/79; PULSE 80; RESP 16; O2SAT 100
== END 2022-12-14 15:33 | disposition home or self-care (01) ==
PROVIDERS: Family Provider Anesthesiology; PCP Internal Medicine; Referring Provider Anesthesiology; Visit Provider Anesthesiology
DX: M47.816 Spondylosis without myelopathy or radiculopathy, lumbar region (principal)
CPT/HCPCS: 64493; 64494; 64495

== ENCOUNTER 2023-02-08 08:15 | Outpatient (CLI) | payer MEDICARE, OTHER, SELFPAY ==
[2023-02-08] VITALS (8 sets, daily range): BP systolic 146–184; BP diastolic 73–84; PULSE 73–85; RESP 12–20; TEMP 36.2; O2SAT 97–100
--- NOTE | 2023-02-08 08:17 | DI.RAD.S_ITS ---
PROCEDURE: PAIN L/SI FACET INJ/BLK 1STL INDICATIONS: SPONDYLOSIS COMPARISON: [facility], , PAIN L/SI FACET INJ/BLK 1STL, 12/14/2022, 15:15. FINDINGS: Fluoroscopic spot filming was performed to verify placement of spinal needles on both sides along the courses of the L3, L4, and L5 nerve roots, as labeled on the films. Appropriate location of the needle tips was confirmed by injection of iodinated contrast. IMPRESSION: Intraprocedural examination demonstrating appropriate positions of the needles. Dictated by: Luis Jiménez M.D. on 02/08/2023 at 17:08 Approved by: Luis Jiménez M.D. on 02/08/2023 at 17:08
[2023-02-08] MEDS: MIDAZOLAM 2 MG/2 ML VIAL 1 MG IV (08:37)
[2023-02-08] MEDS: iopamidoL 15 ML VIAL 3 ML INJ (08:43)
[2023-02-08] MEDS: BUPIVACAINE 0.5% (PF) 10 ML VIAL 5 ML INJ (08:43)
--- NOTE | 2023-02-08 09:55 | P.PCN_ITS ---
Date/Time/Diagnoses Date of procedure: 02/08/23 Time of procedure: 08:30 Procedure Notes Physician: Jensen Hurst Total Fluoroscopy time (seconds): 14 Total sedation minutes: 10 Procedure in detail & Post-procedure care: Right L3, 4, 5 Lumbar Medial Branch Blocks Indications: Deja is presenting for treatment of lumbar spondylosis with low back pain. Preoperative diagnosis: Lumbar spondylosis Postoperative diagnosis: Same Pre-procedure History: Patient demonstrates today moderate to severe non- radicular back pain without neurologic deficit aggravated by hyperextension yes Back pain greater than leg pain? yes Patient today has tenderness over the suspected joint(s) yes History of post-traumatic injury? no Hypertrophic arthropathy yes Back pain associated with suspected motion segment instability, hypermobility or pseudoarthrosis no Pre-testing pain score (VAS): 9/10 Focused Examination: Ax3 Mood and affect are normal Vital Signs: VSS ASA: 2 Consent: Following review of allergies and potential side effects/complications, including, but not necessarily limited to, infection, allergic reaction, local tissue breakdown, stroke, temporary or permanent nerve injury, paralysis, and possible , the patient indicated that they understood and agreed to proceed.? An informed consent document was signed by the patient, witnessed by a nurse and placed in the patient's chart.? Additionally, other treatment options including medications and physical therapy were reviewed with the patient. All questions were answered. Site was then marked. Anesthesia: After review of previous anesthetic history and IV conscious sedation, the patient was deemed safe to proceed with today's procedure with IV conscious sedation. IV sedation was accomplished with midazolam 1 mg administered by the RN after order by Dr. Hurst. Sedation was titrated to patient comfort during the course of the procedure. Patient remained responsive to all verbal commands. Position: Prone Monitoring: NIBP, Pulse oximetry, 3 lead EKG Needle used: 22 ga 3.5 inch spinal needle Contrast: Isovue 300M Injectate: 2% lidocaine 1 mL per site Procedure: The patient was brought into the procedure room and positioned into the prone position. Skin was prepped with a Chloraprep solution, allowed to air dry, and then draped in sterile fashion.? The right L4-5 and L5-S1 facet joints were visually identified with fluoroscopy. Lidocaine 1% was used to anesthetize the skin over each target destination with a 25ga needle. A 22 ga, 3.5 inch spinal needle was advanced to the location of the medial branch at the junction of the superior articular process and the transverse process at L4,5 and the base of the SAP of the sacrum using intermittent fluoroscopy in the AP view. Isovue 300M contrast 0.2ml was injected at each level outlining the medial borders for each level and the base of the SAP of the sacrum in the AP and lateral views. There was no evidence of vascular or intrathecal uptake. The above injectate was slowly injected at each target destination. Post Procedure: Patient was taken to the recovery and monitored. The patient was provided a Pain Log to continue to record the patient's response to the target- specific procedure prior to the patient's follow-up visit with the referring physician. Patient was stable upon discharge. Detailed post procedure instructions were provided. Patient was asked to call in the event of worsening pain, fever, weakness, numbness or bladder or bowel incontinence. Postoperatively, today patient demonstrates the following changes with hyperextension and with tenderness over the suspected joint(s). Provacative testing using the Chow's facet loading test Right side Directly before the block ?VAS (0-10) = 9/10 5 minutes after the block VAS (0-10) = 5/10 Percentage relief obtained with this diagnostic block 44% Any improved physical functioning directly after the blocks? Range of motion Based on the medial branches blocked today, if the patient meets insurance criteria for radiofrequency, the treatment should result in the denervation of the right L4-5 and L5-S1 facet joint nerves. We would expect to denervate a total of 2 facets during the radiofrequency ablation.
== END 2023-02-08 09:10 | disposition home or self-care (01) ==
PROVIDERS: Family Provider Anesthesiology; PCP Internal Medicine; Referring Provider Anesthesiology; Visit Provider Anesthesiology
DX: M47.816 Spondylosis without myelopathy or radiculopathy, lumbar region (principal)
CPT/HCPCS: 64493; 64494; 99152; J2250

== ENCOUNTER 2023-03-22 07:24 | Outpatient (CLI) | payer MEDICARE, OTHER, SELFPAY ==
[2023-03-22] VITALS (10 sets, daily range): BP systolic 139–216; BP diastolic 69–102; PULSE 72–77; RESP 13–20; TEMP 36.1; O2SAT 95–100
--- NOTE | 2023-03-22 07:26 | DI.RAD.S_ITS ---
PROCEDURE: PAIN L/S MED/LAT N RFA INDICATIONS: Spondylosis COMPARISON: None. FINDINGS: Fluoroscopic spot filming was performed to verify placement of spinal needles at the right L4 and L5 medial branch level(s), as labeled on the films. IMPRESSION: Fluoroscopic guidance utilized for performance of a lumbar rhizotomy procedure Dictated by: Mukesh Dominguez M.D. on 03/22/2023 at 11:22 Approved by: Mukesh Dominguez M.D. on 03/22/2023 at 11:23
[2023-03-22] MEDS: MIDAZOLAM 2 MG/2 ML VIAL 1 MG IV (08:06)
[2023-03-22] MEDS: DEXAMETHASONE 10 MG/ML VIAL INJ (08:13)
[2023-03-22] MEDS: BUPIVACAINE 0.5% (PF) 10 ML VIAL 2 ML INJ (08:13)
[2023-03-22] MEDS: LIDOCAINE 2% INJ MDV 20ML 5 ML INJ (08:14)
--- NOTE | 2023-03-22 08:49 | PC.NURSE ---
Patient is upset/ tearful, reports that she is frustrated that the second burn was unable to be completed when she arrived back into the post procedure room. Dr Hurst in and explained procedure. Blood pressure elevated Dr Hurst notified, denies chest pain, SOB, headache, and change in vision.
--- NOTE | 2023-03-22 10:45 | PM.PROC.IR.1 ---
Date/Time/Diagnoses Date of procedure: 03/22/23 Time of procedure: 08:00 Procedure Notes Physician: Jensen Hurst Total Fluoroscopy time (seconds): 28 Total sedation minutes: 21 Procedure in detail & Post-procedure care: Right L3, 4, 5 Lumbar Medial Branch Radio Frequency Ablation Indications: Deja presents for treatment of lumbar spondylosis with low back pain. Preoperative diagnosis: Lumbar spondylosis Postoperative diagnosis: Same Focused Examination: Ax3 Mood and affect are normal Vital Signs: VSS ASA: 2 Consent: Following review of allergies and potential side effects/complications, including, but not necessarily limited to, infection, allergic reaction, local tissue breakdown, stroke, temporary or permanent nerve injury, paralysis, and possible , the patient indicated that they understood and agreed to proceed.? An informed consent document was signed by the patient, witnessed by a nurse and placed in the patient's chart.? Additionally, other treatment options including medications and physical therapy were reviewed with the patient. All questions were answered. Site was then marked. Position: Prone Monitoring: NIBP, Pulse oximetry, 3 lead EKG Needle used: 18 guage, 100 mm, 10 mm active tip Anesthesia: Local with IV sedation. After review of previous anesthetic history and IV conscious sedation, the patient was deemed safe to proceed with today's procedure with IV conscious sedation. IV sedation was accomplished with midazolam 1 mg administered by the RN after order by Dr. Hurst. Sedation was titrated to patient comfort during the course of the procedure. Patient remained responsive to all verbal commands. Procedure: The patient was brought into the procedure room and positioned into the prone position. Skin was prepped with a Chloraprep solution, allowed to air dry, and then draped in sterile fashion.? The right L4-5 and L5-S1 facet joints were visually identified with fluoroscopy. Lidocaine 1% was used to anesthetize the skin over each target destination with a 25ga needle. An 18 ga, 100 mm RFA needle with a 10 mm active tip was advanced to the location of the medial branch at the junction of the superior articular process and the transverse process at L4,5 and the base of the SAP of the sacrum using intermittent fluoroscopy in the oblique view with caudal tilt. AP and lateral radiographs were taken to confirm proper needle placement. No paresthesias were noted. The stylet was removed and the radiofrequency probe was inserted through the cannula. Each level was individually tested.? Motor stimulation up to 2V elicited multifidus twitching in the lumbar spine. There was no motor stimulation in the lower extremities. After negative aspiration, 1ml of 2% lidocaine was injected at each of the levels and radiofrequency denervation carried out using 80 degrees Celsius for 90 seconds. The needles were then rotated 90 degrees and a second ablation was performed at 80 degrees Celsius. She noted right knee discomfort with the 2nd ablation procedure in the RFA was stopped after approximately 15 seconds. Decision was made not complete the 2nd ablation as the 1st had been carried out successfully using the Venom side port on the needle. After ablation, a mixture of 10 mg dexamethasone with 0.5% bupivacaine 2 mL was injected in equal amounts among the sites (1 mL per site). At the end of the procedure the needles were withdrawn and Band-Aids were applied for a dressing. This procedure is expected to denervate the right L4-5 and L5-S1 facet joints. Post Procedure: Patient was taken to the recovery and monitored. The patient was provided a Pain Log to continue to record the patient's response to the target-specific procedure prior to the patient's follow-up visit with the referring physician. Patient was stable upon discharge. Detailed post procedure instructions were provided. Patient was asked to call in the event of worsening pain, fever, weakness, numbness or bladder or bowel incontinence. Complications: None
== END 2023-03-22 08:55 | disposition home or self-care (01) ==
LOC: RAD 07:25
PROVIDERS: Family Provider Anesthesiology; PCP Internal Medicine; Referring Provider Anesthesiology; Visit Provider Anesthesiology
DX: M47.816 Spondylosis without myelopathy or radiculopathy, lumbar region (principal)
CPT/HCPCS: 64494; 64635; 64636; 99152; J1100; J2250

== ENCOUNTER → 2023-04-05 12:42 | Outpatient (CLI) | payer MEDICARE, OTHER, SELFPAY ==
--- NOTE | 2023-04-05 12:44 | DI.RAD.S_ITS ---
PROCEDURE: XR KNEE RT 3V INDICATIONS: right knee pain, fall TECHNIQUE: 3 views of the knee were acquired. COMPARISON: [facility], , KNEE 3V LEFT, 12/01/2015, 13:06. FINDINGS: Bones: No fractures or dislocations. Mild tricompartmental osteoarthritic changes with mild diffuse joint space narrowing. No suspicious bony lesions. Soft tissues: No joint effusion. No suspicious soft tissue calcifications. IMPRESSION: Mild tricompartmental osteoarthritic changes. No acute osseous abnormalities. Dictated by: Sina Ahn M.D. on 04/05/2023 at 13:40 Approved by: Sina Ahn M.D. on 04/05/2023 at 13:41
== END ==
PROVIDERS: Family Provider Anesthesiology; PCP Internal Medicine; Referring Provider Internal Medicine; Visit Provider Internal Medicine
DX: M25.561 Pain in right knee (principal)
CPT/HCPCS: 73562

== ENCOUNTER → 2023-07-05 16:54 | Outpatient (CLI) | payer MEDICARE, OTHER, SELFPAY ==
[2023-07-05 17:14] LABS: Add Manual Diff / Slide Review NO; Basophils Absolute Auto 100 /uL (0-100); Eosinophils Absolute Auto 100 /uL (0-450); Hematocrit 43.2 % (36-46); Hemoglobin 14.5 g/dL (12.0-16.0); Lymphocytes Absolute Auto 2100 /uL (1100-4500); Lymphocytes Percent Auto 23.5 % (25-40); Mean Corpuscular HGB Conc 33.6 % (30-36); Mean Corpuscular Hemoglobin 27.4 PG (26-34); Mean Corpuscular Volume 81.5 fL (80-100); Monocytes Absolute Auto 600 /uL (0-900); Monocytes Percent Auto 6.7 % (3-14); Neutrophils Absolute Auto 6100 /uL (1500-7000); Neutrophils Percent Auto 67.8 % (50-75); Platelet Count 193 X10^3/uL (150-400); Red Cell Distribution Width 14.6 % (11.6-14.8)
[2023-07-05 17:34] LABS: Alanine Aminotransferase 14 IU/L (<35); Albumin 4.3 g/dL (3.5-5.0); Albumin Globulin Ratio 1.4 (1.0-2.8); Alkaline Phosphatase 43 U/L (38-126); Aspartate Aminotransferase 24 IU/L (14-36); BUN Creatinine Ratio 22.7 (6-22); Bilirubin Total 0.6 mg/dL (0.2-1.3); Blood Urea Nitrogen 17 mg/dL (7-17); Calcium 9.1 mg/dL (8.4-10.2); Carbon Dioxide 27 mmol/L (22-32); Chloride 103 mmol/L (98-107); Cholesterol 244 mg/dL (140-199); Estimated Glomerular Filt Rate > 60 mL/min (>60); Globulin 3.1 g/dL (1.7-4.1); Glucose 96 mg/dL (80-110); HDL Cholesterol 63 mg/dL (40-60); HEMOLYSIS < 15 (0-50); LDL Cholesterol Calculated 147 mg/dL (<100); Potassium 4.4 mmol/L (3.4-5.1); Sodium 138 mmol/L (137-145); Total Protein 7.4 g/dL (6.3-8.2); Triglycerides 168 mg/dL (35-150)
== END ==
PROVIDERS: Family Provider Anesthesiology; PCP Internal Medicine; Referring Provider Internal Medicine; Visit Provider Internal Medicine
DX: E78.5 Hyperlipidemia, unspecified (principal)
CPT/HCPCS: 36415; 80053; 80061; 84443; 85025

== ENCOUNTER → 2023-08-02 12:07 | Outpatient (CLI) | payer MEDICARE, OTHER, SELFPAY ==
--- NOTE | 2023-08-02 12:08 | DI.RAD.S_ITS ---
Bone Density Report Name: TONY CORADO Age: 68 Sex: Female Ethnicity: Stephanie Date of : 1955 Indication: osteopenia; Referring Provider: DARREN FRANCES Study: Bone densitometry was performed. Exam Date: August 02, 2023 Accession number: [id number] Bone Density: Region BMD T-score Z-score Classification AP Spine(L1-L4) 0.856 -1.7 0.4 Osteopenia Femoral Neck (Left) 0.559 -2.6 -0.8 Osteoporosis Total Hip (Left) 0.721 -1.8 -0.3 Osteopenia Femoral Neck (Right) 0.757 -0.8 1.0 Normal Total Hip (Right) 0.771 -1.4 0.1 Osteopenia Total Hip Mean 0.746 -1.6 -0.1 Osteopenia World Health Organization criteria for BMD impression classify patients as: Normal (T-score at or above -1.0), Osteopenia (T-score between -1.0 and -2.5), or Osteoporosis (T-score at or below -2.5). 10-year Fracture Risk: FRAX not reported because: Some T-score for Spine Total or Hip Total or Femoral Neck at or below -2.5 Previous Exams: -- Region Exam Age BMD T-score BMD Change BMD Change Date g/cm2 vs Baseline vs Previous -- AP Spine (L1-L4) 08/02/2023 68 0.856 -1.7 -0.055 (-6.1%)# -0.093 (-9.8%)# 07/03/2019 64 0.949 -0.9 0.038 (4.2%)* 0.047 (5.2%)* 12/01/2015 60 0.902 -1.3 -0.009 (-0.9%) -0.009 (-0.9%) 10/28/2013 58 0.911 -1.2 Total Hip(Left) 08/02/2023 68 0.721 -1.8 0.022 (3.2%)# -0.017 (-2.3%)# 07/03/2019 64 0.738 -1.7 0.039 (5.6%)* 0.027 (3.8%) 12/01/2015 60 0.711 -1.9 0.012 (1.7%) 0.012 (1.7%) 10/28/2013 58 0.699 -2.0 Total Hip(Right) 08/02/2023 68 0.771 -1.4 0.067 (9.6%)# 0.031 (4.1%)# 07/03/2019 64 0.741 -1.6 0.037 (5.2%)* 0.016 (2.3%) 12/01/2015 60 0.725 -1.8 0.020 (2.9%) 0.020 (2.9%) 10/28/2013 58 0.704 -2.0 -- *Denotes significance at 95% confidence level, LSC for AP Spine = 0.022 g/cm2, LSC for Total Hip = 0.027 g/cm2 # Denotes dissimilar scan types or analysis methods Impression: The patient has osteoporosis, based on the Left Femoral Neck T-score. No significant bone loss was observed. Discussion: INCREASED RISK OF FRACTURE. BONE DENSITY IS UNDESIRABLY LOW AT ONE OR MORE SKELETAL SITES, CONSISTENT WITH POSTMENOPAUSAL OSTEOPOROSIS. This patient's lowest T-score meets the World Health Organization's (WHO) criteria for osteoporosis at one or more sites (T-score -2.5 or below). In untreated patients, the risk of osteoporotic fracture increases approximately two-fold for each 1.0 SD decrease in T-score. Low bone density is not the only risk factor for fracture; also consider factors such as patient's age, frailty or poor health, risk of falling, risk of injury, previous osteoporotic fracture, family history of osteoporosis, cigarette smoking, low body weight, etc. Not everyone with low bone mineral density has osteoporosis; osteomalacia and other metabolic bone disorders should also be considered. Patients who have osteoporosis should be evaluated for specific diseases and conditions (secondary causes) that may cause or contribute to bone loss. The [place] [employer] (AACE) and National Osteoporosis Foundation (NOF) recommend pharmacologic intervention for all postmenopausal women whose T-score is in this range. The patient should follow a healthful lifestyle (good nutrition with adequate calcium and vitamin D, and appropriate weight-bearing exercise). Follow-Up: Consider a repeat BMD and Vertebral Fracture Assessment (VFA) exam in 2 years or sooner if medically necessary, to reassess this patient's status. Reported by: ANGELA EVANGELISTA MD on 08/02/2023 12:36:00 PM.
== END ==
LOC: RAD 12:08
PROVIDERS: Family Provider Anesthesiology; PCP Internal Medicine; Referring Provider Internal Medicine; Visit Provider Internal Medicine
DX: Z78.0 Asymptomatic menopausal state (principal); M81.0 Age-related osteoporosis without current pathological fracture
CPT/HCPCS: 77080

== ENCOUNTER 2023-12-20 10:21 | Outpatient (CLI) | payer MEDICARE, OTHER, SELFPAY ==
[2023-12-20] VITALS (9 sets, daily range): BP systolic 154–185; BP diastolic 75–88; PULSE 77–85; RESP 13–18; TEMP 36.5; O2SAT 94–98
--- NOTE | 2023-12-20 11:13 | DI.RAD.S_ITS ---
PROCEDURE: PAIN L/S MED/LAT N RFA INDICATIONS: SPONDYLOSIS COMPARISON: [facility], , PAIN L/S MED/LAT N RFA, 03/22/2023, 9:07. FINDINGS: Fluoroscopic spot filming was performed to verify placement of spinal needles at the right L3, L4 and L5 level(s), as labeled on the films. Appropriate location(s) of the needle tip(s) was confirmed by injection of iodinated contrast. IMPRESSION: Intra procedural examination demonstrating appropriate positions of the needles. Dictated by: Sina Ahn M.D. on 12/20/2023 at 16:03 Approved by: Sina Ahn M.D. on 12/20/2023 at 16:04
[2023-12-20] MEDS: MIDAZOLAM 2 MG/2 ML VIAL 1 MG IV (11:17)
[2023-12-20] MEDS: DEXAMETHASONE 10 MG/ML VIAL INJ (11:22)
[2023-12-20] MEDS: LIDOCAINE 1% 20 ML INJ (11:23)
[2023-12-20] MEDS: BUPIVACAINE 0.5% (PF) 10 ML VIAL 5 ML INJ (11:23)
[2023-12-20] MEDS: LIDOCAINE 2% INJ SDV 5ML 5 ML INJ (11:24)
--- NOTE | 2023-12-20 12:21 | P.PCN_ITS ---
Date/Time/Diagnoses Date of procedure: 12/20/23 Time of procedure: 11:00 Procedure Notes Physician: Jensen Hurst Total Fluoroscopy time (seconds): 21 Total sedation minutes: 25 Procedure in detail & Post-procedure care: Right L3, 4, 5 Lumbar Medial Branch Radio Frequency Ablation Indications: Deja presents for treatment of lumbar spondylosis with low back pain. Preoperative diagnosis: Lumbar spondylosis Postoperative diagnosis: Same Focused Examination: Ax3 Mood and affect are normal Vital Signs: VSS ASA: 3 Consent: Following review of allergies and potential side effects/complications, including, but not necessarily limited to, infection, allergic reaction, local tissue breakdown, stroke, temporary or permanent nerve injury, paralysis, and possible , the patient indicated that they understood and agreed to proceed.? An informed consent document was signed by the patient, witnessed by a nurse and placed in the patient's chart.? Additionally, other treatment options including medications and physical therapy were reviewed with the patient. All questions were answered. Site was then marked. Position: Prone Monitoring: NIBP, Pulse oximetry, 3 lead EKG Needle used: 18 guage, 100 mm, 10 mm active tip Anesthesia: Local with IV sedation. After review of previous anesthetic history and IV conscious sedation, the patient was deemed safe to proceed with today's procedure with IV conscious sedation. IV sedation was accomplished with midazolam 1 mg administered by the RN after order by Dr. Hurst. Sedation was titrated to patient comfort during the course of the procedure. Patient remained responsive to all verbal commands. Procedure: The patient was brought into the procedure room and positioned into the prone position. Skin was prepped with a Chloraprep solution, allowed to air dry, and then draped in sterile fashion.? The right L4-5 and L5-S1 facet joints were visually identified with fluoroscopy. Lidocaine 1% was used to anesthetize the skin over each target destination with a 25ga needle. An 18 ga, 100 mm RFA needle with a 10 mm active tip was advanced to the location of the medial branch at the junction of the superior articular process and the transverse process at L4,5 and the base of the SAP of the sacrum using intermittent fluoroscopy in the oblique view with caudal tilt. AP and lateral radiographs were taken to confirm proper needle placement. No paresthesias were noted. The stylet was removed and the radiofrequency probe was inserted through the cannula. Each level was individually tested.? Motor stimulation up to 2V elicited multifidus twitching in the lumbar spine. There was no motor stimulation in the lower extremities. Sensory testing up to 2 volts was also performed and was negative for sensory changes of the lower extremities. After negative aspiration, 1ml of 2% lidocaine was injected at each of the levels and radiofrequency denervation car ried out using 80 degrees Celsius for 90 seconds. The needles were then rotated 90 degrees and a second ablation was performed at 80 degrees Celsius for 90 seconds. After ablation, a mixture of 10 mg dexamethasone with 0.5% bupivacaine 2 mL was injected in equal amounts among the sites (1 mL per site). At the end of the procedure the needles were withdrawn and Band-Aids were applied for a dressing. This procedure is expected to denervate the right L4-5 and L5-S1 facet joints. Post Procedure: Patient was taken to the recovery and monitored. The patient was provided a Pain Log to continue to record the patient's response to the target- specific procedure prior to the patient's follow-up visit with the referring physician. Patient was stable upon discharge. Detailed post procedure instructions were provided. Patient was asked to call in the event of worsening pain, fever, weakness, numbness or bladder or bowel incontinence. Complications: None
== END 2023-12-20 12:01 | disposition home or self-care (01) ==
PROVIDERS: Family Provider Anesthesiology; PCP Internal Medicine; Referring Provider Anesthesiology; Visit Provider Anesthesiology
DX: M47.816 Spondylosis without myelopathy or radiculopathy, lumbar region (principal)
CPT/HCPCS: 64635; 64636; 99152; 99153; J1100; J2250

== ENCOUNTER 2024-01-13 08:49 | Emergency (ER) | payer MEDICARE, OTHER, SELFPAY ==
[2024-01-13 09:00] VITALS: BP 175/81; PULSE 85; RESP 16; TEMP 36.9; O2SAT 100; BMI 35.2
--- NOTE | 2024-01-13 09:10 | ED_ITS ---
HPI - Wound/Laceration General Chief Complaint: Wound/Laceration Stated Complaint: lac on lt thumb Time Seen by Provider: 01/13/24 09:02 History of Present Illness HPI narrative: Patient is a 68-year-old female past medical history of hypertension comes into the ED from home for evaluation of cut to the left thumb. States that this happened approximately 24 hours ago, was using a brand new knife and ?shaved off a piece of her skin on her thumb. On any blood thinners neurovascularly intact. Not up-to-date tetanus. States that she is not having significant amount of pain but states she wanted it to be ?checked out. No other injuries to note. Related Data Home Medications Medication Instructions Recorded Confirmed diclofenac sodium 1 % topical gel 2 g topical QID PRN 09/24/21 10/18/23 (Arthritis Pain (diclofenac)) prednisone 5 mg tablet 5 mg PO DAILY 09/24/21 10/18/23 Previous Rx's Medication Instructions Recorded Disabled Parking Permit 1 ea Not Applicable DAILY #1 ea 01/12/23 amlodipine 2.5 mg tablet 2.5 mg PO DAILY #90 tabs 04/05/23 pramipexole 0.125 mg tablet 0.25 mg (2 x 0.125 mg) PO DAILY 07/25/23 #180 tabs duloxetine 60 mg capsule,delayed 60 mg PO DAILY #90 caps 09/04/23 release celecoxib 200 mg capsule 200 mg PO BID #180 caps 09/07/23 hydrocodone 5 mg-acetaminophen 325 1 tab PO QID PRN pain #30 tabs 10/18/23 mg tablet hydrocodone 5 mg-acetaminophen 325 1 tab PO QID PRN pain #30 tabs 10/18/23 mg tablet hydrocodone 5 mg-acetaminophen 325 1 tab PO QID PRN pain #30 tabs 10/18/23 mg tablet pregabalin 100 mg capsule (Lyrica) 100 mg PO TID #90 caps 10/18/23 tolterodine 4 mg capsule,extended 4 mg PO DAILY #90 caps 10/19/23 release 24 hr nortriptyline 10 mg capsule 10 mg PO BEDTIME #90 caps 11/23/23 Allergies Allergy/AdvReac Type Severity Reaction Status Date / Time hydroxychloroquine Allergy Mild EYE Verified 10/18/23 10:11 [From PLAQUENIL] DRAINAGE Penicillins [PENICILLINS] Allergy Mild HIVES Verified 10/18/23 10:11 PAPER TAPE Allergy Mild Uncoded 10/18/23 10:11 Review of Systems Review of Systems Narrative: HEENT: Denies headache, eye drainage, eye irritation, head trauma, sore throat, voice change Cardiovascular: Denies any chest pain, palpitations, shortness of breath, tachycardia Respiratory: Denies any shortness of breath, cough, wheeze, stridor GI/: Denies any abdominal pain, nausea, vomiting, diarrhea, bright red blood per rectum, melanotic stools, urinary frequency, urinary retention, dysuria, hematuria MSK: Denies any joint pain, muscle pains, swelling Skin: Cut to left thumb Neuro: Denies any headache, lightheadedness, dizziness, fainting, weakness Psych: Denies SI/HI Patient History Medical History Raynaud phenomenon Lumbar spondylosis Lumbar facet arthropathy BPPV (benign paroxysmal positional vertigo) Gait instability Mixed hyperlipidemia Osteopenia Strain of right hip and thigh Chronic adrenal insufficiency Urinary incontinence Restless legs syndrome Hemolytic anemia Lupus Chronic, continuous use of opioids Back pain, chronic Social History Smoking Status: Former smoker Smoking Status: Former smoker alcohol intake frequency: other Substance Use Type: does not use Exam Narrative Exam Narrative: General: Cooperative, comfortable, well-developed, not in acute distress HEENT: Normocephalic, atraumatic, PERRLA, normal sclera, eyelids normal, Neck: Active full range of motion, atraumatic Chest: Normal to inspection, negative crepitus, no overlying erythema ecchymosis Respiratory: Normal respiratory effort, not in acute respiratory distress, clear to auscultation bilaterally negative cough, wheeze, tachypnea, rhonchi, rales Cardiology: Regular rate rhythm negative gallop, murmur, rubs GI/: Normal to inspection, soft, nonrigid, no tenderness to palpation, exam deferred MSK: Full range of active range of motion of all 4 extremities, atraumatic Skin: No rashes lesions noted, there is a 0.75 cm abrasion noted to the distal aspect of the left thumb. Neurovascularly intact not actively bleeding. Compartments soft. Neuro: Alert awake oriented x3, moves all 4 extremities spontaneously, cranial nerves intact, able to answer all questions appropriately follows commands appropriately Psych: Cooperative, negative suicidal or homicidal ideations Initial Vital Signs Initial Vital Signs: Vital Signs Temperature 98.5 F 01/13/24 09:00 Pulse Rate 85 01/13/24 09:00 Respiratory Rate 16 01/13/24 09:00 Blood Pressure 175/81 H 01/13/24 09:00 Pulse Oximetry 100 01/13/24 09:00 Oxygen Delivery Method Room Air 01/13/24 09:00 Course Orders Ordered: Discontinued Medications Diphtheria/Tetanus/Acell Pertussis (Tet,Diph,Pertuss(Acell),Vac/Pf 0.5 Ml Syringe) 0.5 ml IM .ONCE ONE Stop: 01/13/24 09:09 Last Admin: 01/13/24 09:11 Dose: Not Given Vital Signs Vital signs: Vital Signs - 8 hr 01/13/24 09:00 Temperature 98.5 F Pulse Rate 85 Respiratory Rate 16 Blood Pressure 175/81 H Pulse Oximetry 100 Oxygen Delivery Method Room Air MDM - Wound/Laceration Differential Diagnosis Differential diagnosis: Likely laceration and abrasion Medical Records Attestation: I reviewed the patient's medical records. MDM Narrative Medical decision making narrative: Patient is a 68-year-old female presenting for laceration/abrasion to the left thumb 24 hours prior to arrival. On exam thumb not actively bleeding, no foreign body noted, patient shaved off piece of the skin not with area of closure secondary to this. On exam neurovascularly intact compartments soft, abrasion/laceration very superficial not concerning for bone/joint involvement. Patient will have tetanus updated and strict return precautions were given. Patient will be safe for discharge home with outpatient follow-up Discharge Plan Departure Patient Disposition: Home Clinical Impression: Laceration Activity Restrictions/Additional Instructions: Please read the discharge instructions sheet carefully and bring all papers to all doctor follow-up visits, as it may contain information that your doctor may want to see. Disease processes change and evolve, if your symptoms worsen or if you develop any new symptoms that are concerning to you please return for e valuation. Your evaluation today does not show any evidence of any life- threatening/serious illnesses requiring admission to the hospital or surgery. Please follow-up with your doctor for re-evaluation in approximately 1 day. Seek immediate medical attention for any worrisome symptoms. Prescriptions: No Action pramipexole 0.125 mg tablet 0.25 mg PO DAILY Qty: 180 3RF duloxetine 60 mg capsule,delayed release(DR/EC) 60 mg PO DAILY Qty: 90 3RF celecoxib 200 mg capsule 200 mg PO BID Qty: 180 3RF tolterodine 4 mg capsule,extended release 24hr 4 mg PO DAILY Qty: 90 3RF nortriptyline 10 mg capsule 10 mg PO BEDTIME Qty: 90 3RF prednisone 5 mg tablet 5 mg PO DAILY diclofenac sodium [Arthritis Pain (diclofenac)] 1 % gel 2 g topical QID PRN Rx Instructions: apply to single elbow, wrist or hand; for hand includes palm/fingers/back of hand Disabled Parking Permit 1 ea Not Applicable DAILY Qty: 1 0RF amlodipine 2.5 mg tablet 2.5 mg PO DAILY Qty: 90 3RF hydrocodone-acetaminophen 5-325 mg tablet 1 tab PO QID PRN (Reason: pain) Qty: 30 0RF hydrocodone-acetaminophen 5-325 mg tablet 1 tab PO QID PRN (Reason: pain) Qty: 30 0RF hydrocodone-acetaminophen 5-325 mg tablet 1 tab PO QID PRN (Reason: pain) Qty: 30 0RF pregabalin [Lyrica] 100 mg capsule 100 mg PO TID Qty: 90 5RF Referrals: Grant Alford MD [Primary Care Provider] - Stand Alone Forms: Patient Portal/API
[2024-01-13] MEDS: TET,DIPH,PERTUSS(ACELL),VAC/PF 0.5 ML SYRINGE IM (09:20)
== END 2024-01-13 09:26 | disposition home or self-care (01) ==
PROVIDERS: Emergency Provider Student in an Organized Health Care Education/Training Program; Family Provider Anesthesiology; PCP Internal Medicine
DX: S61.012A Laceration without foreign body of left thumb without damage to nail, initial encounter (principal); W26.0XXA Contact with knife, initial encounter; Z23 Encounter for immunization
CPT/HCPCS: 90471; 99283; 90715

== ENCOUNTER → 2024-07-23 07:43 | Outpatient (CLI) | payer MEDICARE, OTHER, SELFPAY ==
[2024-07-23 09:23] LABS: Aspartate Aminotransferase 32 IU/L (14-36); BUN Creatinine Ratio 26.3 (6-22); Blood Urea Nitrogen 20 mg/dL (7-17); Calcium 9.8 mg/dL (8.4-10.2); Carbon Dioxide 28 mmol/L (22-32); Chloride 104 mmol/L (98-107); Cholesterol 226 mg/dL (140-199); Estimated Glomerular Filt Rate > 60 mL/min (>60); Glucose 94 mg/dL (80-110); HDL Cholesterol 62 mg/dL (40-60); HEMOLYSIS < 15 (0-50); LDL Cholesterol Calculated 136 mg/dL (<100); Potassium 4.3 mmol/L (3.4-5.1); Sodium 138 mmol/L (137-145); Triglycerides 139 mg/dL (35-150)
== END ==
PROVIDERS: Family Provider Anesthesiology; PCP Internal Medicine; Referring Provider Internal Medicine; Visit Provider Internal Medicine
DX: I10 Essential (primary) hypertension (principal); E78.2 Mixed hyperlipidemia
CPT/HCPCS: 36415; 80048; 80061; 84450

== ENCOUNTER 2024-12-03 09:22 | Emergency (ER) | payer MEDICARE, OTHER, SELFPAY ==
[2024-12-03] VITALS (19 sets, daily range): BP systolic 174–216; BP diastolic 80–95; PULSE 69–78; RESP 12–23; TEMP 37.1; O2SAT 91–100; BMI 36.0
--- NOTE | 2024-12-03 09:33 | DI.RAD.S_ITS ---
PROCEDURE: XR CLAVICLE RT INDICATIONS: trauma TECHNIQUE: 2 views of the clavicle were acquired. COMPARISON: None. FINDINGS: Bones: No fractures or dislocations. No suspicious bony lesions. Age- appropriate bony degenerative changes are seen. Soft tissues: No suspicious soft tissue calcifications. IMPRESSION: No christiana displaced fracture can be seen on these plain films. Dictated by: Luis Jiménez M.D. on 12/03/2024 at 8:59 Approved by: Luis Jiménez M.D. on 12/03/2024 at 9:00
[2024-12-03] MEDS: HYDROCODONE/ACET 5/325 TABLET 1 TAB PO (12:23)
[2024-12-03] MEDS: LIDOCAINE 1% W/EPI 10ML 5 ML SUBCUT (12:28)
--- NOTE | 2024-12-03 13:27 | PC.NURSE ---
Wound R-arm, cleaned and dressed.
--- NOTE | 2024-12-03 13:35 | ED.FALL ---
HPI - Fall General Chief Complaint: Fall Stated Complaint: GLF Time Seen by Provider: 12/03/24 09:26 Source: patient and EMS Mode of arrival: EMS Limitations: no limitations History of Present Illness HPI Narrative: 69-year-old female patient with a history of who tripped and fell injuring her right clavicle and right elbow. The back of her head struck the door jam slightly but there was no loss of consciousness and no headache or pain currently. No neck pain. No other injury. Related Data Home Medications ?Medication ?Instructions ?Recorded ?Confirmed diclofenac sodium 1 % topical gel 2 g topical QID PRN 09/24/21 10/23/24 (Arthritis Pain (diclofenac)) prednisone 5 mg tablet 5 mg PO DAILY 09/24/21 10/23/24 alprazolam 0.5 mg tablet mg PO 10/23/24 10/23/24 Previous Rx's ?Medication ?Instructions ?Recorded Disabled Parking Permit 1 ea Not Applicable DAILY #1 ea 01/12/23 celecoxib 200 mg capsule 200 mg PO BID #180 caps 09/07/23 amlodipine 2.5 mg tablet 2.5 mg PO DAILY #90 tabs 04/24/24 pregabalin 100 mg capsule (Lyrica) 100 mg PO TID #270 caps 08/05/24 duloxetine 60 mg capsule,delayed 60 mg PO DAILY #90 caps 09/17/24 release hydrocodone 5 mg-acetaminophen 325 1 tab PO QID PRN pain #75 tabs 10/23/24 mg tablet hydrocodone 5 mg-acetaminophen 325 1 tab PO QID PRN pain #75 tabs 10/23/24 mg tablet hydrocodone 5 mg-acetaminophen 325 1 tab PO QID PRN pain #75 tabs 10/23/24 mg tablet ropinirole 0.5 mg tablet 0.5 mg PO BEDTIME #90 tabs 10/23/24 tolterodine 4 mg capsule,extended 4 mg PO DAILY #90 caps 10/24/24 release 24 hr Allergies Allergy/AdvReac Type Severity Reaction Status Date / Time hydroxychloroquine (From Allergy Mild EYE Verified 12/03/24 09:28 PLAQUENIL) DRAINAGE Penicillins (PENICILLINS) Allergy Mild HIVES Verified 12/03/24 09:28 pramipexole AdvReac Intermediate bladder Verified 12/03/24 09:28 spasms PAPER TAPE Allergy Mild Uncoded 12/03/24 09:28 Review of Systems Review of Systems Narrative: GENERAL: Denies chills, fatigue, malaise, fever, sweats. HEENT: Denies sinus pain, ear pain, sore throat, difficulty swallowing, dizziness. RESPIRATORY: Denies dyspnea, cough, wheezing, hemoptysis, sputum. CARDIOVASCULAR: Denies chest pain, palpitations, orthopnea, edema, GASTROINTESTINAL: Denies nausea, vomiting, abdominal pain, diarrhea, constipation, melena. : Denies dysuria, frequency, incontinence, hematuria, urinary retention. MUSCULOSKELETAL: See HPI. Otherwise denies weakness, joint pain, or bony pain SKIN: Denies rash, skin lesions, or other NEUROLOGIC: Denies weakness, headache, numbness, change in speech, confusion, seizures, incoordination. PSYCHIATRIC: No concerning psychosocial issues. 12 point review of systems is negative except for those stated above Patient History Medical History Back pain, chronic BPPV (benign paroxysmal positional vertigo) Chronic adrenal insufficiency Chronic, continuous use of opioids Essential hypertension Gait instability Hemolytic anemia Lumbar facet arthropathy Lumbar spondylosis Lupus Mixed hyperlipidemia Osteopenia Polyneuropathy, unspecified Raynaud phenomenon Restless legs syndrome Strain of right hip and thigh Urinary incontinence Social History Smoking Status: Former smoker Smoking Status: Former smoker alcohol intake frequency: other Exam Narrative Exam Narrative: GENERAL: 69 year old patient appears stated age. Well-developed patient, in mild distress. HEAD: Atraumatic. Normocephalic. EYES: Pupils equal round and reactive. Extraocular motions intact. No scleral icterus. No injection or drainage. ENT: Nose without bleeding, purulent drainage. Throat without erythema, tonsillar hypertrophy or exudate. Airway patent. NECK: Trachea midline. Non tender CARDIOVASCULAR: Regular rate and rhythm without murmurs, gallops, or rubs. RESPIRATORY: Clear to auscultation. Breath sounds equal bilaterally. No wheezes, rales, or rhonchi. GASTROINTESTINAL: Abdomen soft, non-tender, nondistended. EXTREMITIES: Right clavicle is tender but not deformed. There is a skin tear/laceration over the right elbow but no bony tenderness. Remainder of musculoskeletal exam including axial spine, repetition extremities reveals no deformity or tenderness. No edema or joint tenderness. BACK: Nontender without deformity or crepitance. No flank tenderness. NEURO: AOx3. SKIN: No rash or erythema of visible areas Initial Vital Signs Initial Vital Signs: Vital Signs Pulse Oximetry 91 12/03/24 09:24 Procedures Laceration Repair Laceration 1: Site: upper extremity Side (If applicable): right (Right elbow) Size (cm): 3 Description: irregular Depth: simple, single layer Local Anesthetic: lidocaine 1% and with epi Amount of anesthesia used (mL): 3 Pre-repair: wound explored, irrigated extensively and deep structures intact Skin layer closed with: nylon Skin layer suture size: 4-0 Number of sutures: 5 Technique: simple, interrupted Course Orders Ordered: Discontinued Medications Hydrocodone Bitart/Acetaminophen (Hydrocodone/Acet 5/325 Tablet) 1 tab PO NOW ONE Stop: 12/03/24 12:20 Last Admin: 12/03/24 12:23 Dose: 1 tab Documented By: HENRY Lidocaine/Epinephrine (Lidocaine 1% W/Epi 10ml) 5 ml SUBCUT NOW ONE Stop: 12/03/24 12:18 Last Admin: 12/03/24 12:28 Dose: 5 ml Documented By: HENRY Vital Signs Vital signs: Vital Signs - 8 hr 12/03/24 11:00 12/03/24 11:00 12/03/24 11:30 Pulse Rate 69 69 Respiratory Rate 12 12 Blood Pressure 193/86 H Pulse Oximetry 99 99 Oxygen Delivery Method 12/03/24 11:31 12/03/24 11:31 12/03/24 12:00 Pulse Rate 71 72 Respiratory Rate 23 16 Blood Pressure 180/83 H Pulse Oximetry 100 100 Oxygen Delivery Method 12/03/24 12:01 12/03/24 12:01 12/03/24 12:30 Pulse Rate 74 77 Respiratory Rate 21 17 Blood Pressure 198/93 H Pulse Oximetry 98 93 Oxygen Delivery Method 12/03/24 12:31 12/03/24 12:31 12/03/24 13:00 Pulse Rate 77 75 Respiratory Rate 22 18 Blood Pressure 208/85 H Pulse Oximetry 98 98 Oxygen Delivery Method 12/03/24 13:01 12/03/24 13:01 12/03/24 13:42 Pulse Rate 78 78 Respiratory Rate 23 18 Blood Pressure 179/81 H 174/80 H Pulse Oximetry 100 97 Oxygen Delivery Method Room Air MDM - Fall Imaging Data Right clavicle: Attestation: I personally reviewed and interpreted this imaging study as follows: (No fracture or malalignment) [facility] Narrative Medical decision making narrative: Patient tripped sustaining a ground level fall with right elbow skin tear/laceration repaired with nylon. Right clavicle contusion with radiographs negative. She bumped her head slightly but did not meet criteria for CT or imaging. No symptoms currently. In addition her blood pressure has been elevated in the ER but she does not take medication for hypertension. Asymptomatic from her elevated blood pressure. Plan is follow up closely with primary care to recheck blood pressure. Follow up with primary care or ER in 10 days for suture removal. Otherwise contusion care and return to the ER as needed for any worsening symptoms Discharge Plan Departure Patient Disposition: Home Clinical Impression: Accidental fall, Contusion of right clavicle, Elevated blood pressure reading, Elbow laceration Instructions: Essential Hypertension, DI for Laceration Repair, How to Prevent Falls Activity Restrictions/Additional Instructions: Plan: Hydration, rest and supportive care with cold packs as needed 2 areas of contusion. Wound care as directed, see handout. Monitor blood pressure. Follow up with your provider or the ER for suture removal in 10 days. Otherwise follow up with your doctor in 1-2 weeks to reassess blood pressure. May need treatment if persistently elevated. Prescriptions: No Action celecoxib 200 mg capsule 200 mg PO BID Qty: 180 3RF pregabalin [Lyrica] 100 mg capsule 100 mg PO TID Qty: 270 1RF duloxetine 60 mg capsule,delayed release(DR/EC) 60 mg PO DAILY Qty: 90 0RF tolterodine 4 mg capsule,extended release 24hr 4 mg PO DAILY Qty: 90 3RF prednisone 5 mg tablet 5 mg PO DAILY diclofenac sodium [Arthritis Pain (diclofenac)] 1 % gel 2 g topical QID PRN Rx Instructions: apply to single elbow, wrist or hand; for hand includes palm/fingers/back of hand Disabled Parking Permit 1 ea Not Applicable DAILY Qty: 1 0RF amlodipine 2.5 mg tablet 2.5 mg PO DAILY Qty: 90 3RF alprazolam 0.5 mg tablet PO Patient Comments: [NO ORIGINAL SIG] hydrocodone-acetaminophen 5-325 mg tablet 1 tab PO QID PRN (Reason: pain) Qty: 75 0RF hydrocodone-acetaminophen 5-325 mg tablet 1 tab PO QID PRN (Reason: pain) Qty: 75 0RF hydrocodone-acetaminophen 5-325 mg tablet 1 tab PO QID PRN (Reason: pain) Qty: 75 0RF ropinirole 0.5 mg tablet 0.5 mg PO BEDTIME Qty: 90 3RF Rx Instructions: administer 1-3 hours before bedtime Referrals: Grant Alford MD [Primary Care Provider, Internal Medicine] Stand Alone Forms: Patient Portal/API
== END 2024-12-03 13:58 | disposition home or self-care (01) ==
PROVIDERS: Emergency Provider Emergency Medicine; PCP Internal Medicine
DX: S09.90XA Unspecified injury of head, initial encounter (principal); S51.011A Laceration without foreign body of right elbow, initial encounter; S49.81XA Other specified injuries of right shoulder and upper arm, initial encounter; R03.0 Elevated blood-pressure reading, without diagnosis of hypertension; W18.30XA Fall on same level, unspecified, initial encounter
CPT/HCPCS: 12002; 73000; 99283

== ENCOUNTER → 2024-12-22 10:23 | Outpatient (CLI) | payer MEDICARE, OTHER, SELFPAY | PROVIDERS: PCP Internal Medicine; Visit Provider Nurse Practitioner Family | DX: S51.009A Unspecified open wound of unspecified elbow, initial encounter (principal) | CPT/HCPCS: 87070; 87205 ==